=== PATIENT | female | born 1960 | race Caucasian/White ===

== ENCOUNTER 2017-05-07 09:00 | Outpatient (RCR) | payer OTHER, SELFPAY ==
--- NOTE | 2017-04-01 12:55 | HP.PTEVAL ---
Patient's Visit Information VU HIGGINS is a 56 year old F referred to Physical Therapy by Holly Braun DO with a diagnosis of LUMBAR RADICULOPATHY AND PLANTAR FASCITIS. Date of Evaluation: 04/01/17 Physical Therapist: Asuncion Duron - Visit Plan Frequency: 2-3x /Week Duration: 4-6 Weeks Plan: AQUATIC THERAPY. POSTURE CORRECTION/STRENGTHENING, INSTRUCTION IN APPROPRIATE BODY MECHANICS AND ACTIVITY MODIFICATIONS. DLS STARTING WITH A NEUTRAL SPINE PROGRESSING ROM TOLERATED. MICHAEL LE ROM, STRETCHING AND STRENGTHENING. HEP INSTRUCTION. - Subjective Subjective: Work/Leisure: WORKING 15 HOURS A WEEK BETWEEN [employer] (STARTING IN [employer]). A LOT OF STANDING. NO HEAVY LIFTING. 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 Disability: NO. Present symptoms: RIGHT LOW BACK, RIGHT THIGH, RIGHT LEG AND RIGHT FOOT. NO LE NUMBNESS OR TINGLING. MICHAEL FOOT PAIN. Present since: THESE PAINS STARTED ABOUT 3 MONTHS AGO. Pain Scale: BACK AND RIGHT LE AT WORST 5/10, LEAST 0/10. FEET WORST 6/10, LEAST 2/10. Currently: BACK AND RIGHT LE 1/10, FEET 2/10. Commenced as a result of: FALL ON BACK 2014. Symptoms at onset: RIGHT HIP. Worse: STANDING, SITTING, STAIRS, LYING DOWN, LIFTING, ANY SORT OF EXERCISE. Better: ICING, ADVIL. Disturbed sleep: YES. Previous history/Previous treatment: CHIROPRACTIC SINCE 1981 FOR HER BACK AND NECK. PT AT DR. GONZALEZ OFFICE. NO BACK OR FOOT SURGERIES. NO INJECTIONS. Coughing/sneezing/straining: NEGATIVE. Gait: INTERMITTENT LIMITATION DUE TO SEVERE FOOT PAIN CAUSING HER TO HAVE TO SIT DOWN. Difficulty initiating urinatin: NO. Accidents: NO. Unexplained weight loss: ABOUT 15 LBS IN 8 MONTHS. Imaging: MRI OF LUMBAR - NORMAL AGING. DR. PRUITT ORDERED X-RAYS OF FEET LAST YEAR - BONE SPUR LEFT AND ARTHRITIS ON TOP OF RIGHT FOOT. PMH: HYPOTHYROIDISM, PSORIASIS, HTN, HEART BURN, ANXIETY. Recent major surgery: LEFT KNEE MENISECTOMY, BENIGN LUMP REMOVAL. SKIN CANCER REMOVED 3 MONTHS AGO. RIGHT THUMB SURGERY. OTHER: GOING THROUGH A DIVORCE NOW. RECENTLY GOT NEW SHOES AT DR. BRAVO RECOMMENDATION AND THEY ARE HELPING. PATIENT REPORTS SHE WAS HAVING A LOT OF EXTREMITY NUMBNESS AND TINGLING SO SHE SAW A NEUROLOGIST LAST YEAR AND DX'D WITH SCOLIOSIS AND PROBABLY A LOT STRESS INDUCED SX'S. - Objective Sitting Posture: POOR. Standing Posture: POOR. INCREASED KYPHOSIS AND SCOLIOSIS. Lordosis: REDUCED. Lateral shift: NO. Relevant shift: N/A. Active Correction of posture: NE. Other Observations: INDEP GAIT INTO PT WITH NO AD'S AND NO GROSS DEVIATIONS NOTED. INDEP SIT TO STAND WITHOUT UE ASSIST. Motor deficit: MICHAEL LE STRENGTH 5/5 WITH MMT EXCEPT HIPS GRADED 4/5. NO C/O INCREASED PAIN WITH TESTING. Sensory deficit: MICHAEL LE LIGHT TOUCH SENSATION TESTING IS INTACT AND SYMMETRICAL. ROM deficit: MICHAEL LE ROM WFL BUT SHE DOES HAVE TIGHT MICHAEL GASTROC SOLEUS COMPLEX'S. Reflexes: MICHAEL LE'S 2/2. Dural Signs: NEGATIVE MICHAEL LE DURAL SIGNS. Lumbar mvmt loss: flex - MIN. ext - RAMOS. R SG - RAMOS. L SG - RAMOS. Core strength: POOR. Palpation: NO ACUTE PALPABLE TENDERNESS IN THORACIC OR LUMBAR SPINE. ALSO NOT ACUTELY TENDER OVER PARASPINALS. - Goals Goal 1:: DECREASE C/O BACK AND RIGHT LE SX'S Goal Time Frame: 4-6 Weeks Goal 2:: IMPROVE STANDING, SITTING, STAIRS, LYING DOWN, LIFTING, EXERCISE, WORK AND SLEEP FUNCTION. Goal Time Frame: 4-6 Weeks Goal 3:: INSTRUCT IN PROPHYLAXIS (PATIENT HAS A HEALTH AND WELLNESS MEMBERSHIP HERE AT [facility]). Goal Time Frame: 4-6 Weeks - Rehabilitation Potential Rehabilitation Potential: Fair - Anticipated Interventions Patient/Client Instruction: Educate patient on: Condition, Plan of Care, Risk Factors, Benefits of Fitness Program For the Purpose of:: To improve self management Therapeutic Exercise to Include: Strength training, Body mechanics, Postural training, Flexibilty training, In an aquatic setting, Dynamic Lumbar Stabilization For the Purpose of:: To improve ability of physical actions for home/community/work/leisure TENS: Yes IF ES: Yes Cryotherapy (ice pack, ice massage): Yes Thermo therapy (hot pack): Yes Ultrasound (thermal/non thermal): Yes For the Purpose of:: To decrease pain, To decrease swelling/inflammation, To increase ROM Thank you for the opportunity to evaluate your patient. For Medicare and Medicare HMO plans, please review the plan of care and approve it. It will need to be FAXED BACK to us at [phone] for Medicare purposes. Please let me know if there are questions or concerns regarding this plan of care. Physician Signature: Date:
--- NOTE | 2017-05-07 11:34 | HP.PTREVAL ---
Holly Wagner, DO, It has been my pleasure to treat VU HIGGINS over the last 9 visits for LUMBAR RADICULOPATHY AND PLANTAR FASCITIS. Please see the progress note below for an update on the physical therapy plan of care! Subjective: PATIENT REPORTS SHE IS A LOT BETTER. STATES HER LEGS AND FEET ARE MUCH BETTER BUT THE BONE SPUR IS STILL BOTHERING HER SOME. CURRENTLY HAVING LB ACHE 1/10. RIGHT LE INCLUDING FOOT 0/10. SHE REPORTS LYING ON HER RIGHT SIDE AND SITTING DO STILL PROVOKE RIGHT LE SX'S UP TO 6/10 AT WORST. RIGHT LE SX'S CAN STILL BRING TEARS TO HER EYES. NO FOLLOW UP WITH DR. AWGNER YET BUT APPOINTMENT IN JUNE. PATIENT REPORTS SHE IS AMAZED AT HOW MUCH AQUA THERAPY HAS HELPED. SHE ALSO REPORTS THE POSTURE CORRECTION AND HOME EX'S ARE HELPING. I CAN SEE A HUGE DIFFERENCE. PATIENT REPORTS HER LEFT HEEL PAIN IS DEFINATELY BETTER TOO BUT SHE STILL HAS CONSTANT PAIN. THE BACK OF HER FOOT IS TENDER. SHE IS TO FOLLOW UP WITH DR. PRUITT NEEDED AT THIS POINT. PATIENT REPORTS SHE TOLERATED THE SQUATS AND STEP UPS IN THE POOL FINE LAST VISIT. 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 GOOD PROGRESS TOWARD ALL PT GOALS. Lumbar mvmt loss: flex - MIN. ext - MOD. R SG - MOD. L SG - MOD. Core strength: POOR TO FAIR. Palpation: NO ACUTE PALPABLE TENDERNESS IN THORACIC OR LUMBAR SPINE. ALSO NOT ACUTELY TENDER OVER PARASPINALS. SHE IS TENDER OVER THE LEFT ACHILLES TENDON. PATIENTS HIPS ARE GETTING MUCH STRONGER AND LUMBAR ROM IS IMPROVING. NO C/O INCREASED PAIN WITH LUMBAR ROM TESTING TODAY. Plan Plan: RECOMMEND CONTINUED AQUATIC THERAPY 2-3 TIMES A WEEK X 9 MORE VISITS PER CURRENT POC WORKING TOWARD INDEP EX. PATIENT IS AGREEABLE. Goals Goal 1:: DECREASE C/O BACK AND RIGHT LE SX'S Goal Time Frame: 4-6 Weeks Goal Progress: Progressing Goal 2:: IMPROVE STANDING, SITTING, STAIRS, LYING DOWN, LIFTING, EXERCISE, WORK AND SLEEP FUNCTION. Goal Time Frame: 4-6 Weeks Goal Progress: Progressing Goal 3:: INSTRUCT IN PROPHYLAXIS (PATIENT HAS A HEALTH AND WELLNESS MEMBERSHIP HERE AT [facility]). Goal Time Frame: 4-6 Weeks Goal Progress: Progressing Anticipated Interventions Patient/Client Instruction: Educate patient on: Condition, Plan of Care, Risk Factors, Benefits of Fitness Program For the Purpose of:: To improve self management Therapeutic Exercise to Include: Strength training, Body mechanics, Postural training, Flexibilty training, In an aquatic setting, Dynamic Lumbar Stabilization For the Purpose of:: To improve ability of physical actions for home/community/work/leisure TENS: Yes IF ES: Yes Cryotherapy (ice pack, ice massage): Yes Thermo therapy (hot pack): Yes Ultrasound (thermal/non thermal): Yes For the Purpose of:: To decrease pain, To decrease swelling/inflammation, To increase ROM Please do not hesitate to contact me at [phone] by phone or if you have questions or concerns regarding this new plan of care! Sincerely, Asuncion Duron
== END 2017-05-07 09:30 | disposition home or self-care (01) ==
LOC: PT 09:00
PROVIDERS: Family Provider Internal Medicine; PCP Internal Medicine; Visit Provider Internal Medicine
DX: M54.16 Radiculopathy, lumbar region (principal); M72.2 Plantar fascial fibromatosis
CPT/HCPCS: 97113; 97162; 97530

== ENCOUNTER → 2018-01-06 07:34 | Outpatient (CLI) | payer OTHER, SELFPAY ==
--- NOTE | 2018-01-06 07:37 | BI_ITS ---
MAMMOGRAPHY - BILATERAL SCREENING REASON FOR EXAM: Female, 57 years old. Routine annual screening examination. PERTINENT HISTORY: Aunt with breast cancer. Remote right excisional breast biopsy. TECHNIQUE: Digital bilateral breast john (3D mammographic acquisition) in the CC and MLO projections. 2-D mediolateral oblique (MLO) and craniocaudad (CC) views of both breasts were obtained. CAD: Full Field Digital Mammography with Computer Added Detection was performed. COMPARISON: Comparison is made with prior abdomen examination is December 30, 2016. FINDINGS: Breast Composition: The breasts are heterogeneously dense, which may obscure small masses. There are no dominant masses or suspicious calcifications. No other significant abnormalities are identified. There has been no significant change since the prior study. BI/SCREENING MAMM (CAD), BILAT IMPRESSION: Stable bilateral screening mammogram. Yearly follow-up mammogram recommended. (A) ASSESSMENT CATEGORY: BIRADS Category 1: Negative. A letter regarding these results will be sent to the patient by the facility within 30 days. Approximately 10% of breast cancers are not detected by mammography. A normal mammogram should not delay biopsy of a clinically suspicious abnormality. [id number] Electronically Signed: Mati Alicea MD at 9:14 EDT Tel [phone], Service support ,
--- NOTE | 2018-01-06 15:02 | RAD_ITS ---
STUDY: X-RAY - RIGHT SHOULDER REASON FOR EXAM: Female, 57 years old. Right shoulder pain after lifting TECHNIQUE: 4 view(s) of the shoulder. COMPARISON: None. FINDINGS: There is moderate degenerative arthrosis of the glenohumeral articulation. There is degenerative arthrosis of the acromioclavicular joint without inferior osseous spur formation. Normal acromion. Normal humeral head and visualized proximal humerus. The soft tissue structures are unremarkable. Normal visualized pulmonary apex. RAD/Shoulder min 2 Views IMPRESSION: Degenerative arthrosis Electronically Signed: Grayson Cruz MD at 14:52 EDT , Service support ,
--- NOTE | 2018-01-06 15:12 | RAD_ITS ---
STUDY: ACROMIOCLAVICULAR JOINTS REASON FOR EXAM: Female, 57 years old. Pain RADIATION DOSAGE (If Supplied By Facility): CTDIvol = ( ) mGy, DLP = ( ) mGycm. Individualized dose optimization techniques were used for this CT.? FLUOROSCOPY TIME (if supplied): ( ) minutes/seconds TECHNIQUE: 2 views, with and without weights COMPARISON: None. FINDINGS: No plain film evidence of acromioclavicular joint separation. There is arthritic narrowing of both acromioclavicular joints, more prominent on the left than the right. No demonstrated fracture, or glenohumeral joint abnormality. RAD/A/C Jts Raj w or w/o Wts IMPRESSION: Degenerative arthrosis, no demonstrated acromioclavicular joint separation Electronically Signed: Grayson Cruz MD at 14:31 EDT , Service support ,
== END ==
PROVIDERS: Family Provider Internal Medicine; PCP Internal Medicine; Visit Provider Internal Medicine
DX: Z12.31 Encounter for screening mammogram for malignant neoplasm of breast (principal); M25.511 Pain in right shoulder
CPT/HCPCS: 73030; 73050; 77063; 77067

== ENCOUNTER 2018-02-03 16:00 | Outpatient (RCR) | payer OTHER, SELFPAY ==
--- NOTE | 2018-01-13 10:34 | HP.PTEVAL ---
Patient's Visit Information VU HIGGINS is a 57 year old F referred to Physical Therapy by Holly Braun DO with a diagnosis of R shouder pain.. Date of Evaluation: 01/13/18 Physical Therapist: Carla Connolly - Visit Plan Frequency: 3x /Week Duration: 3 Weeks Plan: PT services 3x week for 3 weeks focusing on posture, scapular stabilization and strength, range of motion and strength of surrounding musculature of R shoulder. If no improvement at end of 3 weeks, f/u with physician. - Subjective Subjective: About 3 months ago pt. went to reach over in car to set something down and excrutiating pain begain in the right anterior shoulder. [place] pop initially but clicking noted in both shoulders is normal. Difficulty driving stick shift, grabbed Ibprofen and drove home. Did not use R arm much for a couple months and seemed to get better then pain began again putting something down extending elbow. Both shoulders bother, but R is worse. Arthritis in both feet, L knee, and back. Current shoulder pain feels a little more intense than other arthritis. Similar to foot. Aquatic threapy seemed to help for feet last year. Pain is deep anterior shoulder. Generally stays in shoulder, tingling in fingers before injury; aggrevated for first three weeks after initial injury. Current pain 1-2/10, worst 6/10, best 1/10. Keeping arm adducted at side feels good; ER, ext., or abd. shoulder feel worst. Tried ice 20 minutes on and hour off, not sure if helps. No previous injury. Contributing factor to not sleeping well but able to move around and fall back asleep. Mostly sleeps on back and sides, never on stomach. Noticed if carrying work bag on shoulder and lifting causes pain so carries two smaller bags. No MARROQUIN, migraines, no dizziness, eyes get blurry at night but normal. 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 Notices using L arm more to avoid using R during tasks. R hand dominant. Able to complete ADL, notices will compensate if pain. PMH include cartilage removed in L knee, appendcectomy, lumpectomy. Medication hypothryoid Cinthroid daily, slowly stopped taking off Cimbalata, Lorazapam as needed for anxiety. Goals: regain full use of shoulder and eliminate pain. Getting ready to go to counselor at law to create a diet addressing thryoid and arthritis. Dr. Braun, radiographs show arthritis. February 20 f/u. - Pain anterior shoulder Pain Intensity (Out of 10): 2 Pain Intensity Range: 1, 6 - Objective Gait: WFL, good arm swing bilat. Posture: rounded shoulders, kyphosis, FHP. Palaption: TTP R coracoid process and anterior GH joint. AROM: R shoulder: flex WFL pain at end range, abd. lack approx 40 deg with pain, ext. WFL, ER at 0 WFL, ER at 90 WFL with pain, IR able to reach mid back with pain. Cervical: flex approx 15 deg, ext. approx 15 deg, lat. flex approx 20 deg, rotation approx 25 deg. Limitations due to tightness, do not affect shoulder pain. Elbow and wrist: WNL. Strength: shoulder 4/5 throughout with pain, elbow and wrist 5/5 throughout. Special Tests: Neer's (+) Hawkin's Daniele (+) Empy Can (+ pain in both positions-ER more painful) - Goals Goal 1:: Patient will be I with HEP and progressions. Goal Time Frame: 4-6 Weeks Goal 2:: Patient will demonstrate proper posture throughout session to reflect correct scapular stabilization. Goal Time Frame: 4-6 Weeks Goal 3:: Patient will demonstrate full range of motion of right shoulder where deficits. Goal Time Frame: 4-6 Weeks Goal 4:: Patient will demonstrate increased strength to 5/5 throughout the shoulders. Goal Time Frame: 4-6 Weeks Goal 5:: Patient will present with pain 1/10 or less for 1 week. Goal Time Frame: 4-6 Weeks - Rehabilitation Potential Physical Therapy Diagnosis: Patient presents with hypomobility. Decreased range of motion and strength of the R shoulder in addition to arthritis limiting the patient from functional participation in daily and work activites. Rehabilitation Potential: Good - Anticipated Interventions Patient/Client Instruction: Educate patient on: Condition, Plan of Care, Benefits of Fitness Program For the Purpose of:: To increase ROM, To improve muscle performance and motor function, To improve ability to perform ADL's, To increase tolerance to activity/condition/position, To improve ability of physical actions for home/community/work/leisure Therapeutic Exercise to Include: Strength training, Power training, Coordination, Body mechanics, Postural training, Flexibilty training, Active ROM, Scapular Strength/Stabilization For the Purpose of:: To increase ROM, To improve muscle performance and motor function, To improve ability to perform ADL's, To increase tolerance to activity/condition/position, To improve ability of physical actions for home/community/work/leisure TENS: Yes Cryotherapy (ice pack, ice massage): Yes Thermo therapy (hot pack): Yes Ultrasound (thermal/non thermal): Yes For the Purpose of:: To decrease pain Thank you for the opportunity to evaluate your patient. For Medicare and Medicare HMO plans, please review the plan of care and approve it. It will need to be FAXED BACK to us at [phone] for Medicare purposes. Please let me know if there are questions or concerns regarding this plan of care. Physician Signature: Date:
--- NOTE | 2018-04-16 09:44 | HP.PT.NRP ---
HP - Discharge Summary (1) - Patient Information VU HIGGINS was seen in my office for initial evaluation on 01/13/18. The following Plan of Care was established for this patient: Initial Frequency: 3x /Week Initial Duration: 3 Weeks - Anticipated Interventions Patient/Client Instruction: Educate patient on: Condition, Plan of Care, Benefits of Fitness Program For the Purpose of:: To increase ROM, To improve muscle performance and motor function, To improve ability to perform ADL's, To increase tolerance to activity/condition/position, To improve ability of physical actions for home/community/work/leisure Therapeutic Exercise to Include: Strength training, Power training, Coordination, Body mechanics, Postural training, Flexibilty training, Active ROM, Scapular Strength/Stabilization For the Purpose of:: To increase ROM, To improve muscle performance and motor function, To improve ability to perform ADL's, To increase tolerance to activity/condition/position, To improve ability of physical actions for home/community/work/leisure TENS: Yes Cryotherapy (ice pack, ice massage): Yes Thermo therapy (hot pack): Yes Ultrasound (thermal/non thermal): Yes For the Purpose of:: To decrease pain This patient was last seen in our office . Pertinent comments regarding their Physical therapy will appear below: Patient has not attended therapy in over 8 weeks- appropriate for d/c and return to MD for further evaluation as needed. At this point I will be discontinuing this patient from physical therapy. I would be happy to see this patient again in the future if found appropriate by the physician. Thank you! Carla Connolly DPT
== END 2018-02-03 19:00 | disposition home or self-care (01) ==
LOC: PT 16:00
PROVIDERS: Family Provider Internal Medicine; PCP Internal Medicine; Referring Provider Internal Medicine; Visit Provider Internal Medicine
DX: M25.511 Pain in right shoulder (principal)
CPT/HCPCS: 97110; 97161

== ENCOUNTER 2018-06-11 09:30 | Outpatient (RCR) | payer SELFPAY | END 2018-06-17 23:59 | LOC: NS 09:30 | PROVIDERS: Family Provider Internal Medicine; PCP Internal Medicine; Visit Provider Internal Medicine | DX: E66.9 Obesity, unspecified (principal); Z68.28 Body mass index [BMI] 28.0-28.9, adult; E78.00 Pure hypercholesterolemia, unspecified; Z71.3 Dietary counseling and surveillance | CPT/HCPCS: 97802; 97803 ==

== ENCOUNTER 2018-07-15 08:30 | Outpatient (RCR) | payer SELFPAY | END 2018-07-18 23:59 | LOC: NS 08:30 | PROVIDERS: Family Provider Internal Medicine; PCP Internal Medicine; Visit Provider Internal Medicine | DX: E66.9 Obesity, unspecified (principal); Z68.28 Body mass index [BMI] 28.0-28.9, adult; E78.00 Pure hypercholesterolemia, unspecified; Z71.3 Dietary counseling and surveillance | CPT/HCPCS: 97803 ==

== ENCOUNTER → 2018-09-09 08:20 | Outpatient (CLI) | payer OTHER, SELFPAY ==
--- NOTE | 2018-09-09 08:27 | BD_ITS ---
STUDY: DUAL ENERGY X-RAY ABSORPTIOMETRY / DXA REASON FOR EXAM: Female, 57 years old. The patient is postmenopausal. No loss of height. TECHNIQUE: Bone Mineral Density (BMD) measurements of lumbar spine and bilateral hips were obtained. COMPARISON: Comparison is made with prior study dated May 21, 2016. FINDINGS: Lumbar Spine (L1-L4): g/cm2 (1.283) / T-score (0.7) / Z-score (1.6) Findings are suggestive of normal bone density with a low fracture risk. Left Femur Total: g/cm2 (0.959) / T-score (-0.4) / Z-score (0.4) Left Femoral Neck: g/cm2 (0.947) / T-score (-0.7) / Z-score (0.4) Right Femur Total: g/cm2 (0.989) / T-score (-0.1) / Z-score (0.6) Right Femoral Neck: g/cm2 (0.993) / T-score (-0.3) / Z-score (0.8) The T-Scores on the most recent prior examination were: Lumbar Spine (L1-L4): There has been worsening of bone density since the previous examination. Left Femur Total: which represents a worsening of 4%. Right Femur Total: which represents an improvement of 2.8%. BD/Dexa Bone Density Study IMPRESSION: The patient is considered normal as outlined below according to World Amanuel Organization (WHO) criteria with a low fracture risk. There has been worsening of bone density since the previous examination. Reference Information: The T-score is the number of standard deviations above or below the standard which is normal for young adults at their peak bone mineral density. The World Health Organization (WHO) interprets the T-scores as follows: Above -1 Normal bone density Between -1 and -2.5 Osteopenia Equal to / or below -2.5 Osteoporosis As a practical clinical guideline, osteopenia may be graded as follows: Mild -1 through -1.5 Moderate -1.6 through -2.0 Severe -2.1 through -2.4 The Z-score is the number of standard deviations above or below age-matched controls. A Z-score of less than -1.5 would be considered abnormal. References: 1. NIH Osteoporosis and Related Bone Diseases http://www.osteo.org 2. International Society for Clinical Densitometry http://www.iscd.org 3. National Osteoporosis Foundation http://www.nof.org Electronically Signed: Mati Alicea, at 12:33 EDT , Service support ,
== END ==
PROVIDERS: Family Provider Internal Medicine; PCP Internal Medicine; Referring Provider Internal Medicine; Visit Provider Internal Medicine
DX: Z78.0 Asymptomatic menopausal state (principal)
CPT/HCPCS: 77080

== ENCOUNTER 2018-09-10 08:00 | Outpatient (RCR) | payer SELFPAY | END 2018-09-17 23:59 | LOC: NS 08:00 | PROVIDERS: Family Provider Internal Medicine; PCP Internal Medicine; Visit Provider Internal Medicine | DX: E66.9 Obesity, unspecified (principal); Z68.28 Body mass index [BMI] 28.0-28.9, adult; E78.00 Pure hypercholesterolemia, unspecified; Z71.3 Dietary counseling and surveillance | CPT/HCPCS: 97803 ==

== ENCOUNTER 2018-10-06 08:41 | Outpatient (RCR) | payer OTHER, SELFPAY | END 2018-10-17 23:59 | LOC: NS 08:41 | PROVIDERS: Family Provider Internal Medicine; PCP Internal Medicine; Visit Provider Internal Medicine | DX: E66.9 Obesity, unspecified (principal); Z68.28 Body mass index [BMI] 28.0-28.9, adult; E78.00 Pure hypercholesterolemia, unspecified; Z71.3 Dietary counseling and surveillance | CPT/HCPCS: 97803 ==

== ENCOUNTER → 2019-09-16 12:46 | Outpatient (CLI) | payer OTHER, SELFPAY ==
--- NOTE | 2019-09-16 12:51 | BI_ITS ---
MAMMOGRAPHY - BILATERAL SCREENING REASON FOR EXAM: Female, 58 years old. Routine annual screening examination. PERTINENT HISTORY: Aunts with breast cancer. TECHNIQUE: Digital bilateral breast jl (3D mammographic acquisition) in the CC and MLO projections. 2-D mediolateral oblique (MLO) and craniocaudad (CC) views of both breasts were obtained. CAD: Full Field Digital Mammography with Computer Added Detection was performed. COMPARISON: Comparison is made with prior examination dated January 06, 2018. FINDINGS: Breast Composition: The breasts are heterogeneously dense, which may obscure small masses. There are no dominant masses or suspicious calcifications. No other significant abnormalities are identified. There has been no significant change since the prior study. BI/SCREEN MAMM (CAD) W/JL BILAT IMPRESSION: Stable bilateral screening mammogram. Yearly follow-up mammogram recommended. (A) ASSESSMENT CATEGORY: BIRADS Category 1: Negative. A letter regarding these results will be sent to the patient by the facility within 30 days. Approximately 10% of breast cancers are not detected by mammography. A normal mammogram should not delay biopsy of a clinically suspicious abnormality. [id number] Electronically Signed: Mati Alicea, at 13:58 EDT , Service support ,
== END ==
PROVIDERS: PCP Internal Medicine; Referring Provider Internal Medicine; Visit Provider Internal Medicine
DX: Z12.31 Encounter for screening mammogram for malignant neoplasm of breast (principal)
CPT/HCPCS: 77063; 77067

== ENCOUNTER → 2019-12-19 07:59 | Outpatient (CLI) | payer OTHER, SELFPAY ==
--- NOTE | 2019-12-19 08:11 | RAD_ITS ---
STUDY: X-RAY CHEST REASON FOR EXAM: Female, 59 years old. Cough x 1 year -- itching left side x 6 months -- breast lump removed 25 years ago TECHNIQUE: PA and lateral views of the chest. COMPARISON: Comparison is made with prior study dated 06/23/2010. FINDINGS: The lungs are clear and expanded. There is no demonstrated pleural abnormality. Normal size heart. Normal mediastinum and geeta. Normal visualized pulmonary arteries. There is atherosclerotic tortuosity of the aortic arch and descending thoracic aorta. There are diffuse degenerative changes of the visualized thoracic spine. Normal visualized ribs, clavicles, and shoulders. There is no demonstrated abnormality of the visualized soft tissue structures of the upper abdomen. RAD/Chest PA and Lateral IMPRESSION: Stable examination. Electronically Signed: Mati Alicea, at 10:43 EDT , Service support ,
--- NOTE | 2019-12-19 08:16 | US_ITS ---
STUDY: ABDOMINAL ULTRASOUND - RIGHT UPPER QUADRANT REASON FOR VISIT: Female, 59 years old elevated liver enzymes TECHNIQUE: Ultrasound evaluation of the right upper quadrant was performed with real-time and static martin-scale imaging. TECHNICAL QUALITY: Adequate. COMPARISON: None. FINDINGS: Liver: The liver measures 16.8 cm. There is increased echogenicity consistent with fatty infiltration. The bile ducts are within normal limits. There is hepatic color flow. The direction of portal flow is hepatopetal. There is no demonstrated mass lesion. Gallbladder: Normal distended gallbladder. The gallbladder wall measures 1.6 mm. There is a negative sonographic Evangelista''s sign. There is no pericholecystic fluid. There are no gallstones. Common Bile Duct (C.B.D.): The common bile duct measures 4.3 mm. Pancreas: Normal size of the head, body and tail of the pancreas. There is normal echogenicity of the pancreas. There is no demonstrated pancreatic mass or cyst. Right Kidney: Normal size of the right kidney. The right kidney measures 9.7 cm x 4.5 sinus by 4.1 cm. Normal renal cortex. The right cortex measures 1.1 cm. There is no demonstrated renal mass or cyst. There is no right hydronephrosis. US/Liver IMPRESSION: Fatty infiltration of the liver. Electronically Signed: Mati Alicea, at 10:15 EDT , Service support ,
== END ==
PROVIDERS: PCP Internal Medicine; Referring Provider Internal Medicine; Visit Provider Internal Medicine
DX: R94.5 Abnormal results of liver function studies (principal); R05 Cough
CPT/HCPCS: 71046; 76705

== ENCOUNTER → 2020-02-06 07:56 | Outpatient (CLI) | payer OTHER, SELFPAY ==
--- NOTE | 2020-02-06 08:00 | CT_ITS ---
STUDY: CT CHEST WITH CONTRAST REASON FOR EXAM: Female, 59 years old. CHRONIC COUGH X 1 YR, TINGLING TO LT UPPER CHEST, RT BREAST LUMPECTOMY-BENIGN RADIATION DOSAGE (If Supplied By Facility): CTDIvol = ( 12.33 ) mGy, DLP = ( 500.74 ) mGycm TECHNIQUE: Transaxial imaging was performed following intravenous administration of IV 100mL Isovue-300. Multiplanar coronal and sagittal images were reformatted. Individualized dose optimization techniques were used for this CT. COMPARISON: None. FINDINGS: No airspace consolidation or localized groundglass opacities. No bronchiectasis or interstitial fibrosis. There is no demonstrated pleural abnormality. Normal heart and pericardium. Normal mediastinum. Normal hilar regions. Normal enhanced pulmonary arteries. Normal aorta arch and descending thoracic aorta. There are multi-level degenerative changes of the thoracic spine. Well-defined cyst of the inferior left hepatic lobe measuring 1.4 cm. Benign, incidental finding; no specific imaging workup recommended according to current ACR guidelines. CT/Chest WITH Contrast IMPRESSION: No airspace consolidation or significant interstitial lung disease. Electronically Signed: Sonido Modi MD ([place]) at 8:51 EDT , Service support ,
== END ==
PROVIDERS: PCP Internal Medicine; Referring Provider Internal Medicine; Visit Provider Internal Medicine
DX: R05 Cough (principal)
CPT/HCPCS: 71260; Q9967

== ENCOUNTER → 2020-12-31 09:30 | Outpatient (CLI) | payer OTHER, SELFPAY ==
--- NOTE | 2020-12-31 09:43 | US_ITS ---
STUDY: ABDOMINAL ULTRASOUND - RIGHT UPPER QUADRANT REASON FOR VISIT: Female, 60 years old FATTY LIVER -- LIVER AND PANCREAS ALSO HAS JOHNNY COLORED STOOLS TECHNIQUE: Ultrasound evaluation of the right upper quadrant was performed with real-time and static martin-scale imaging. TECHNICAL QUALITY: Adequate. COMPARISON: Comparison is made with prior study dated 12/19/2019. FINDINGS: Liver: The liver measures 15.8 cm. There is increased echogenicity consistent with fatty infiltration. The bile ducts are within normal limits. There is hepatic color flow. The direction of portal flow is hepatopetal. There is no demonstrated mass lesion. Gallbladder: Normal distended gallbladder. The gallbladder wall measures 4 mm. There is a negative sonographic Evangelista''s sign. There is no pericholecystic fluid. There are no gallstones. Common Bile Duct (C.B.D.): The common bile duct measures 4 mm. Pancreas: Normal size of the head, body and tail of the pancreas. There is normal echogenicity of the pancreas. There is no demonstrated pancreatic mass or cyst. Right Kidney: Normal size of the right kidney. The right kidney measures 10.5 cm x 5 cm x 4.8 cm. Normal renal cortex. The right cortex measures 1.9 cm. There is no demonstrated renal mass or cyst. There is no right hydronephrosis. US/Abdomen Limited IMPRESSION: Fatty infiltration of the liver. Electronically Signed: Mati Alicea MD at 9:51 EDT , Service support ,
== END ==
PROVIDERS: PCP Internal Medicine; Referring Provider Internal Medicine; Visit Provider Internal Medicine
DX: K76.0 Fatty (change of) liver, not elsewhere classified (principal)
CPT/HCPCS: 76705

== ENCOUNTER → 2021-04-03 09:36 | Outpatient (CLI) | payer OTHER, SELFPAY ==
--- NOTE | 2021-04-03 09:40 | BI_ITS ---
MAMMOGRAPHY - BILATERAL DIAGNOSTIC REASON FOR EXAM: Female, 60 years old. Right retroareolar and upper quadrant pain. PERTINENT HISTORY: Aunts with breast cancer. TECHNIQUE: Digital bilateral breast john (3D mammographic acquisition) in the CC and MLO projections. 2-D mediolateral oblique (MLO) and craniocaudad (CC) views of both breasts were obtained. CAD: Full Field Digital Mammography with Computer Added Detection was performed. COMPARISON: Comparison is made with prior study 09/16/2019 and 01/06/2018. FINDINGS: Breast Composition: The breasts are heterogeneously dense, which may obscure small masses. There are no dominant masses or suspicious calcifications. No other significant abnormalities are identified. There has been no significant change since the prior study. BI/DIAG MAMM W/CAD, BILAT IMPRESSION: Stable bilateral diagnostic mammogram. With the patient''s history of a right upper quadrant pain, correlation with ultrasound is recommended. ASSESSMENT CATEGORY: BIRADS Category 0: Incomplete. Need additional imaging evaluation. A letter regarding these results will be sent to the patient by the facility within 30 days. Approximately 10% of breast cancers are not detected by mammography. A normal mammogram should not delay biopsy of a clinically suspicious abnormality. Electronically Signed: Mati Alicea MD at 11:09 EST , Service support ,
--- NOTE | 2021-04-03 10:31 | US_ITS ---
STUDY: ULTRASOUND BREAST - RIGHT REASON FOR EXAM: Female, 60 years old. Pain in the right breast. TECHNIQUE: Axial and longitudinal images of the RIGHT breast were performed with a high resolution ultrasound transducer. # OF IMAGES: 36 COMPARISON: Comparison is made with prior mammogram done earlier in the day. FINDINGS: RIGHT Breast: The upper lateral aspect of the right breast was examined by ultrasound. There is heterogeneous fibroglandular tissue. No sonographic abnormality is seen. US/Breast Limited Unilateral IMPRESSION: No sonographic abnormalities seen. ASSESSMENT CATEGORY: BIRADS Category 1: Negative. A letter regarding these results will be sent to the patient by the facility within 30 days. Electronically Signed: Mati Alicea MD at 12:15 EST , Service support ,
== END ==
PROVIDERS: PCP Internal Medicine; Visit Provider Internal Medicine
DX: N64.4 Mastodynia (principal)
CPT/HCPCS: 76642; 77062; 77066; G0279

== ENCOUNTER → 2022-04-08 | Outpatient (CLI) | payer OTHER, SELFPAY ==
--- NOTE | 2022-04-08 14:48 | BI_ITS ---
MAMMOGRAPHY - BILATERAL SCREENING REASON FOR EXAM: Female, 61 years old. Routine annual screening examination. PERTINENT HISTORY: Aunt with breast cancer. TECHNIQUE: Digital bilateral breast jl (3D mammographic acquisition) in the CC and MLO projections. 2-D mediolateral oblique (MLO) and craniocaudad (CC) views of both breasts were obtained. CAD: Full Field Digital Mammography with Computer Added Detection was performed. COMPARISON: Comparison is made with prior study of 04/03/2021 and 09/16/2019. FINDINGS: Breast Composition: The breasts are heterogeneously dense, which may obscure small masses. There are no dominant masses or suspicious calcifications. No other significant abnormalities are identified. There has been no significant change since the prior study. BI/SCRN MAMM (CAD)W/JL BILAT IMPRESSION: Stable bilateral screening mammogram. Yearly follow-up mammogram recommended. (A) ASSESSMENT CATEGORY: BIRADS Category 1: Negative. A letter regarding these results will be sent to the patient by the facility within 30 days. Approximately 10% of breast cancers are not detected by mammography. A normal mammogram should not delay biopsy of a clinically suspicious abnormality. [id number] Electronically Signed: Mati Alicea MD at 8:17 EST ,
--- NOTE | 2022-04-08 14:56 | BD_ITS ---
STUDY: DUAL ENERGY X-RAY ABSORPTIOMETRY / DXA REASON FOR EXAM: Female, 61 years old. [id number] TECHNIQUE: Bone Mineral Density (BMD) measurements of lumbar spine and bilateral hips were obtained. COMPARISON: Comparison is made with prior study 09/09/2018. FINDINGS: Lumbar Spine (L1-L4): g/cm2 (1.096) / T-score (0.4) / Z-score (1.9) Findings are suggestive of normal bone density with a low fracture risk. Left Femur Total: g/cm2 (0.987) / T-score (0.4) / Z-score (1.3) Left Femoral Neck: g/cm2 (0.825) / T-score (-0.2) / Z-score (1.1) Right Femur Total: g/cm2 (0.938) / T-score (0.0) / Z-score (0.9) Right Femoral Neck: g/cm2 (0.774) / T-score (-0.7) / Z-score (0.6) The T-Scores on the most recent prior examination were: Lumbar Spine (L1-L4): There has been worsening of bone density since the previous examination. Left Femur Total: which represents an improvement of 10.4%. Right Femur Total: which represents an improvement of 1.6%. BD/Dexa Bone Density Study IMPRESSION: The patient is considered normal as outlined below according to World Amanuel Organization (WHO) criteria with a low fracture risk. There has been improvement of bone density since the previous examination. Reference Information: The T-score is the number of standard deviations above or below the standard which is normal for young adults at their peak bone mineral density. The World Health Organization (WHO) interprets the T-scores as follows: Above -1 Normal bone density Between -1 and -2.5 Osteopenia Equal to / or below -2.5 Osteoporosis As a practical clinical guideline, osteopenia may be graded as follows: Mild -1 through -1.5 Moderate -1.6 through -2.0 Severe -2.1 through -2.4 The Z-score is the number of standard deviations above or below age-matched controls. A Z-score of less than -1.5 would be considered abnormal. References: 1. NIH Osteoporosis and Related Bone Diseases www osteo.org 2. International Society for Clinical Densitometry www iscd.org 3. National Osteoporosis Foundation www nof.org Electronically Signed: Mati Alicea MD at 12:30 EST ,
== END | disposition home or self-care (01) ==
LOC: OPBD 14:45
PROVIDERS: PCP Internal Medicine; Visit Provider Internal Medicine
DX: Z12.31 Encounter for screening mammogram for malignant neoplasm of breast (principal); Z80.3 Family history of malignant neoplasm of breast; Z78.0 Asymptomatic menopausal state; M85.80 Other specified disorders of bone density and structure, unspecified site
CPT/HCPCS: 77063; 77067; 77080

== ENCOUNTER → 2022-06-18 | Outpatient (CLI) | payer OTHER, SELFPAY ==
--- NOTE | 2022-06-18 07:24 | US_ITS ---
STUDY: ABDOMINAL ULTRASOUND - RIGHT UPPER QUADRANT REASON FOR VISIT: Female, 61 years old FATTY LIVER TECHNIQUE: Ultrasound evaluation of the right upper quadrant was performed with real-time and static martin-scale imaging. TECHNICAL QUALITY: Adequate. COMPARISON: Comparison is made with prior study dated 12/31/2020. FINDINGS: Liver: The liver measures 16.5 cm. There is increased echogenicity consistent with fatty infiltration. The bile ducts are within normal limits. There is hepatic color flow. The direction of portal flow is hepatopetal. There is a 1.6 cm x 1.77 x 1.8 cm cyst in the left lobe. Gallbladder: Normal distended gallbladder. The gallbladder wall measures 2.1 mm. There is a negative sonographic Evangelista''s sign. There is no pericholecystic fluid. There are no gallstones. Common Bile Duct (C.B.D.): The common bile duct measures 5.6 mm. Pancreas: Normal size of the head, body and tail of the pancreas. There is normal echogenicity of the pancreas. There is no demonstrated pancreatic mass or cyst. Right Kidney: Normal size of the right kidney. The right kidney measures 10.4 cm x 5.2 cm x 3.9 cm. Normal renal cortex. The right cortex measures 1.4 cm. There is no demonstrated renal mass or cyst. There is no right hydronephrosis. US/Liver IMPRESSION: Fatty infiltration of the liver. 1.6 cm x 1.7 cm x 1.8 cm cyst in the left lobe of the liver. Electronically Signed: Mati Alicea MD at 14:03 EST ,
[2022-06-18 08:25] LABS: CREATININE FINGERSTICK < 0.9 mg/dL (0.55-1.02); EGFR FINGERSTICK > 60.0000 mL/min (>60)
== END | disposition home or self-care (01) ==
LOC: US 07:20
PROVIDERS: PCP Internal Medicine; Referring Provider Internal Medicine; Visit Provider Internal Medicine
DX: R10.12 Left upper quadrant pain (principal); K76.0 Fatty (change of) liver, not elsewhere classified
CPT/HCPCS: 76705

== ENCOUNTER → 2022-06-23 | Outpatient (CLI) | payer OTHER, SELFPAY ==
--- NOTE | 2022-06-23 07:56 | CT_ITS ---
STUDY: CT ABDOMEN WITH CONTRAST REASON FOR EXAM: Female, 61 years old. LEFT UPPER QUADRANT PAIN. Prior appendectomy. RADIATION DOSAGE (If Supplied By Facility): CTDIvol = ( 18.07 ) mGy, DLP = ( 815.27 ) mGycm TECHNIQUE: Transaxial images were obtained post I.V. administration of Oral and amp;amp; IV Readi-CAT and amp;amp; 100mL Isovue-370, and with oral contrast. Sagittal and coronal images were reconstructed. Individualized dose optimization techniques were used for this CT. COMPARISON: Comparison is made with prior ultrasound of the right upper quadrant dated June 18, 2022. FINDINGS: The visualized lung bases are unremarkable. The visualized portions of the heart are within normal limits. There is decreased attenuation of the liver consistent with steatosis. There is a 1.8 cm x 1.8 cm cyst in the anterior medial aspect of the right lobe of liver. Normal gallbladder and extrahepatic biliary system. Normal spleen. Normal pancreas. Normal bilateral adrenal glands. There is evidence of cortical thinning along the posterior medial aspect of the right kidney suggests over prior ischemic insult or infection. Normal left kidney. There is a small hiatal hernia. Normal small intestine. The patient is status post appendectomy. The appendix is visualized and appears normal. Normal abdominal aorta. Normal inferior vena cava. Normal retroperitoneum. Normal abdominal wall. Normal osseous structures. CT/Abdomen WITH IV Contrast IMPRESSION: Fatty infiltration of the liver. 1.8 cm x 1.8 cm cyst in the inferior medial aspect of the right lobe of the liver. Focal cortical thinning is seen in the posterior medial aspect of the right kidney. Electronically Signed: Mati Alicea MD at 12:34 EST ,
== END | disposition home or self-care (01) ==
LOC: CT 07:52
PROVIDERS: PCP Internal Medicine; Visit Provider Internal Medicine
DX: R10.12 Left upper quadrant pain (principal); K76.0 Fatty (change of) liver, not elsewhere classified
CPT/HCPCS: 74160; Q9967

== ENCOUNTER 2022-09-02 07:57 | Observation (INO) | payer OTHER, SELFPAY ==
[2022-09-02 07:58] VITALS: BP 187/83; PULSE 76; RESP 18; TEMP 36.1; O2SAT 100; BMI 31.6
--- NOTE | 2022-09-02 08:10 | CT_ITS ---
STUDY: CT SOFT TISSUE NECK WITH CONTRAST REASON FOR EXAM: Female, 61 years old. 2 week history of dysphagia and cough. RADIATION DOSAGE (If Supplied By Facility): CTDIvol = ( 17.03 ) mGy, DLP = ( 476.62 ) mGycm TECHNIQUE: The patient was scanned in a multi-detector CT scanner. High resolution transaxial imaging was performed following intravenous administration of IV 100mL Isovue-370. Sagittal and coronal images were reconstructed. Individualized dose optimization techniques were used for this CT. COMPARISON: None. FINDINGS: Normal bilateral parotid glands. 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 Normal bilateral parapharyngeal spaces. Normal bilateral carotid spaces. Normal bilateral sublingual and submandibular glands and spaces. Normal visualized nasopharynx. Normal retropharyngeal space. Normal perivertebral space. Normal visualized bilateral faucial tonsils. The visualized tongue, tongue base and oropharynx are normal. The visualized cervical lymph nodes (levels I-) are within normal size limits, and maintain normal morphology. There is no demonstrated solid or cystic mass lesion. There is no abnormal contrast enhancement. Normal epiglottis, bilateral vallecula and hypopharynx. The pre-epiglottic and paraglottic adipose spaces are normal. Normal visualized bilateral piriform sinuses, aryepiglottic folds, vocal cords, and arytenoid-cricoid articulations. Normal subglottic trachea. Mild heterogeneous appearance of the thyroid lobes. Normal visualized pulmonary apices. Normal visualized paranasal sinuses. Disc space narrowing at the C7-T1 level. CT/Soft Tissue Neck WITH Contrast IMPRESSION: Normal enhanced CT examination of the soft tissues of the neck. Electronically Signed: Mati Alicea MD at 9:26 EDT ,
--- NOTE | 2022-09-02 08:11 | RAD_ITS ---
STUDY: X-RAY CHEST REASON FOR EXAM: Female, 61 years old. Cough. Patient is unable to swallow. TECHNIQUE: PA and lateral views of the chest. COMPARISON: Comparison is made with prior study December 19, 2019. FINDINGS: Stable mild elevation of right hemidiaphragm. The lungs are clear and expanded. There is no demonstrated pleural abnormality. Normal size heart. Normal mediastinum and geeta. Normal visualized pulmonary arteries. Normal visualized aortic arch and descending thoracic aorta. There are diffuse degenerative changes of the visualized thoracic spine. Normal visualized ribs, clavicles, and shoulders. There is no demonstrated abnormality of the visualized soft tissue structures of the upper abdomen. RAD/Chest PA and Lateral IMPRESSION: Normal x-ray examination of the chest. Electronically Signed: Mati Alicea MD at 9:25 EDT ,
--- NOTE | 2022-09-02 08:12 | EX.ED.DYSGE1 ---
HPI History of Present Illness Chief Complaint: Sore Throat Informant: patient Narrative Narrative: Patient presents secondary to difficulty swallowing. She states she feels like things are getting stuck in her throat when she tries to swallow. This morning she tried to take her Synthroid and could not get it down. She states now that she thinks about it the last couple weeks she had to double swallow to really get everything down. She has had a mild cough. She denies throat pain. PFSH PFS Medical History Anxiety Autoimmune disorder Hypothyroidism Panic attacks Psoriasis Home Medications amlodipine 2.5 mg tablet 2.5 mg PO DAILY 05/21/14 [History Last Taken Unknown] clobetasol 0.05 % topical spray (Clobex) 59 ml TP QWEEK PRN Itching 05/21/14 [History Last Taken Unknown] hydrocodone-acetaminophen 5-325mg 5mg-325mg 1 tab PO Q4H PRN PRN Pain ##10 05/21/14 [Rx Last Taken Unknown] levothyroxine 88 mcg tablet 88 mcg PO DAILY 05/21/14 [History Last Taken Unknown] ondansetron 8 mg disintegrating tablet (Zofran ODT) 8 mg PO Q12H PRN PRN Nausea ##5 05/21/14 [Rx Last Taken Unknown] Allergy/AdvReac Type Severity Reaction Status Date / Time No Known Allergies Allergy Verified 09/02/22 07:57 Social History Smoking Status: Never smoker ROS ROS ED Constitutional Constitutional ED: Denies chills or fever(s) Eyes Eyes: Denies discharge from eye(s) ENT ENT ED: Reports other Details: Difficulty swallowing, feels like things get stuck in her throat. ; Denies discharge from eye(s), rhinorrhea or sore throat Cardiovascular Cardiovascular: Denies chest pain or palpitations Respiratory/Chest Respiratory/Chest: Reports cough; Denies dyspnea Gastrointestinal Gastrointestinal: Denies abdominal pain, nausea or vomiting Musculoskeletal Musculoskeletal: Denies back pain or extremity pain Integumentary Denies Abrasions or rash Neurologic Neurologic: Denies headache(s) or weakness Psychiatric Psychiatric: Denies anxiety or depression Allergic/Immunologic Allergic/Immunologic ED: Denies lip swelling or urticaria EXAM Physical Exam Const Vital Signs: 09/02/22 07:58 09/02/22 08:11 Temperature 97.0 F L Temperature Source Temporal Pulse Rate 76 Respiratory Rate 18 Respiratory Effort Normal Non-Labored Respiratory Pattern Normal Blood Pressure 187/83 H Blood Pressure Mean 117 Pulse Ox 100 Oxygen Delivery Method Room Air Positive well nourished and well developed General Appearance ED: well developed HEENT Reports normocephalic and head/scalp atraumatic HEENT Narrative: Speaks with a strong voice and is tolerating secretions well. Eyes PERRL and EOMs intact bilaterally Neck supple Chest Wall inspection of chest normal and palpation of chest normal Resp normal respiratory effort and clear to auscultation bilaterally Cardio regular rate and regular rhythm GI normal to inspection, nondistended, normoactive bowel sounds Palpation: soft Extremity normal to inspection Neuro oriented x3 and no sensory deficits noted Sensorium / Orientation: alert Motor Exam: strength 5/5 throughout Psych mental status grossly normal Skin no rashes or lesions noted MDM MDM MDM Narrative Medical decision making narrative: Labwork obtained to evaluate for leukocytosis, anemia, and electrolyte derangement. Chest x-ray obtained to evaluate for acute lung pathology, cardiac size, or mediastinal abnormality. CT scan of the neck obtained with contrast to evaluate for obstruction, mass. Lab Data Attestation: I reviewed the patient's lab results. Labs: Laboratory Results - last 24 hr 09/02/22 09/02/22 08:25 08:25 WBC 6.5 RBC 4.92 Hgb 14.9 Hct 44.8 MCV 91.1 MCH 30.3 MCHC 33.3 RDW Std Deviation 41.1 RDW Coeff of Cathy 12.4 Plt Count 351 MPV 9.9 Immature Gran % (Auto) 0.200 Neut % (Auto) 52.0 Lymph % (Auto) 29.6 [place] % (Auto) 9.5 Eos % (Auto) 7.8 H Baso % (Auto) 0.9 Absolute Neuts (auto) 3.4 Absolute Lymphs (auto) 1.93 Nucleated RBC % 0 Sodium 139 Potassium 3.6 Chloride 102 Carbon Dioxide 30.0 Anion Gap 7 BUN 13 Creatinine 0.87 Estim Creat Clear Calc 61.88 Est GFR (MDRD) Af Amer 86 Est GFR (MDRD) Non-Af 71 BUN/Creatinine Ratio 15.0 Glucose 102 Calcium 9.7 Radiography Chest X-Ray - ED: 2 View, Read by ED Physician, Normal, Lungs and No Infiltrates Diagnostic Testing: Clinical Impression(s) from Imaging Studies Soft Tissue Neck CT 09/02/22 08:10 IMPRESSION: Normal enhanced CT examination of the soft tissues of the neck. Electronically Signed: Mati Alicea MD at 9:26 EDT , Chest X-Ray 09/02/22 08:11 IMPRESSION: Normal x-ray examination of the chest. Electronically Signed: Mati Alicea MD at 9:25 EDT , Treatment and Re-Evaluation :: CBC and chemistry studies are unremarkable. Two-view chest x-ray per my interpretation reveals no evidence of infiltrate. Radiology interpretation is reviewed. CT scan of the neck with contrast reveals no acute abnormalities. I spoke with Dr. Bruna ROMERO. He is concerned that this may be more of an esophageal dysmotility or obstruction. He did request hospitalist evaluation for admission and he will see her in consult with plan for an upper scope. Hospitalist is on page at this time. Discharge Plan Triage Chief Complaint: Sore Throat ED Provider: Hailey Oates Dx/Rx/DC Orders Clinical Impression: Dysphagia Prescriptions: No Action amlodipine 2.5 MG tablet 2.5 mg PO DAILY levothyroxine 88 MCG tablet 88 mcg PO DAILY clobetasol [Clobex] 59 ML spray,non-aerosol 59 ml TP QWEEK PRN (Reason: Itching) hydrocodone-acetaminophen 1 TABLET tablet 1 tab PO Q4H PRN PRN (Reason: Pain) Qty: 10 0RF ondansetron [Zofran ODT] 8 MG tablet,disintegrating 8 mg PO Q12H PRN PRN (Reason: Nausea) Qty: 5 0RF Rx Instructions: Primary Care Provider: Holly Braun Referrals: Fast,Holly, DO [Primary Care Provider] - Disposition Disposition: Acute Care Hospital [facility]
[2022-09-02 08:33] LABS: Absolute Lymphocyte Count 1.93 X10^3/uL (0.83-4.51); Absolute Neutrophil Count 3.4 X10^3/uL (2.0-7.7); Basophil# 0.06 X10^3/uL; Basophil% 0.9 % (0-1); Eosinophil# 0.51 X10^3/uL; Eosinophils% 7.8 % (0-5); Hematocrit 44.8 % (37-47); Hemoglobin 14.9 g/dL (12.0-15.0); Lymphocyte # 1.93 X10^3/ul (0.83-4.51); Lymphocyte % 29.6 % (19-41); Mean Corp Hgb Conc 33.3 g/dL (32-36); Mean Corpuscular Hgb 30.3 pg (27.0-32.0); Mean Corpuscular Volume 91.1 fL (81-99); Mean Platelet Vol. 9.9 fl (6.2-12.0); Monocyte# 0.62 X10^3/uL; Monocyte% 9.5 % (0-10); NRBC Flagged by Analyzer 0 % (0-5); Neutrophil # 3.39 X10^3/uL (2.7-7.7); Platelet Count 351 K/mm3 (150-450); RBC Distribution Width CV 12.4 % (11.6-14.6); RBC Distribution Width SD 41.1 fl (35.1-43.9); Red Blood Count 4.92 M/mm3 (4.2-5.4); White Blood Count 6.5 K/mm3 (4.4-11.0)
[2022-09-02 08:44] LABS: Anion Gap 7 (5-15); BUN 13 mg/dL (7-18); Calcium,Total 9.7 mg/dL (8.5-10.1); Chloride 102 mmol/L (98-107); Creatinine, Serum 0.87 mg/dL (0.55-1.02); EST Glomerular Filtration Rate 71 mL/min (>60); Est Glom Filt Rate - Afr Amer 86 mL/min (>60); Estimated Creatinine Clearance 61.88 ml/min; Glucose 102 mg/dL (74-106); Potassium 3.6 mmol/L (3.5-5.1); Sodium Level 139 mmol/L (136-145)
[2022-09-02 09:57] VITALS: BP 167/90; PULSE 69; RESP 16; O2SAT 97
--- NOTE | 2022-09-02 09:59 | PCM.HP.STD ---
HPI - General General Date of Admission: 09/02/22 Date of Service: 09/02/22 Chief Complaint: Intermittent partial/incomplete dysphagia for 3 months HPI Narrative VU HARVEY, is a 61 F came to ED for dysphagia that feels more concerning for last couple weeks although she had intermittent infrequent dysphagia for for 3 months. She noticed more for last couple weeks that she has to swallow 2-3 times. She feels something difficult to swallow or is stuck, deep in her throat/neck. She is able to swallow saliva. Today's she tried to swallow thyroid pill but could not get it down. She has history of chronic sinusitis. She also history of hypothyroidism and takes thyroid pill and psoriasis. She has mild intermittent dry cough but no other symptoms. She also referred to shank carrier by PCP for mild chronic dry cough. Patient denies any prior history of dysphagia. Never had EGD. Denies any history of thyroid goiter or surgery. She had appendectomy in the past Family history noncontributory to the present illness. [facility] Medical History Anxiety Autoimmune disorder Hypothyroidism Panic attacks Psoriasis Home Medications clobetasol 0.05 % topical spray (Clobex) 59 ml TP QWEEK PRN Itching 05/21/14 [History Last Taken 09/01/22] levothyroxine 88 mcg tablet 88 mcg PO MOTUWETHFRSA Check with primary doctor 05/21/14 [History Last Taken 09/02/22 88] levothyroxine 88 mcg tablet 132 mcg PO SELLERS 09/02/22 [History Last Taken Unknown] Allergy/AdvReac Type Severity Reaction Status Date / Time No Known Allergies Allergy Verified 09/02/22 07:57 Family History no significant family his no significant family history Social History Smoking Status: Never smoker ROS ROS Narrative Constitutional: Denies fatigue and weakness. No fever. No acute flulike symptoms except mild chronic cough. HEENT: Reports systems reviewed and no addt'l complaints, except as documented Respiratory/Chest: Occasional cough probably allergic and chronic. No acute shortness of breath. CVS: No chest pain. Gastrointestinal: Denies coffee ground emesis, hematemesis or vomiting Genitourinary: Denies burning urination or new urinary tract symptoms Musculoskeletal: Denies chronic joint pain or limited range of motion. No acute injury Neurologic: Denies seizure-like symptoms. No acute strokelike symptoms skin: Chronic intermittent itching. Psoriasis Endocrinology: Reports systems reviewed and no addt'l complaints, except as documented Hematologic/Lymphatic: Reports systems reviewed and no addt'l complaints, except as documented Rest 14 ROS are negative except as mentioned in HPI Vital Signs Vital Signs Vital Signs: 09/02/22 07:58 09/02/22 08:11 09/02/22 09:57 Temperature 97.0 F L Temperature Source Temporal Pulse Rate 76 69 Respiratory Rate 18 16 Respiratory Effort Normal Non-Labored Respiratory Pattern Normal Blood Pressure 187/83 H 167/90 H Blood Pressure Mean 117 115 Pulse Ox 100 97 Oxygen Delivery Method Room Air Room Air Weight Weight: 190 lb 6.4 oz Body Mass Index (BMI) 31.6 Physical Exam Narrative Physical exam General: Alert, Oriented x3, Cooperative HEENT: Atraumatic, PERRLA, EOMI, Normocephalic Oral: No Gingival or Mucosal Lesions/ Ulcerations. No enlarged tonsil. Can swallow water and saliva. Soft palate, uvula/lateral pharyngeal wall visualized. Neck: Thyroid inferior margin palpable. No palpable thyroid nodule. Supple, No JVD, Negative Carotid Bruits Lungs: Air entry diminished in bilateral lung bases. No crepitation/rhonchi Cardiovascular: Regular rate, Regular Rhythm, Normal S1, Normal S2, No murmurs Abdomen: Bowel Sounds Present, Soft, Non Tender, Non-Distended : No renal angle tenderness. No suprapubic tenderness. Extremities: No edema, Capillary Refill Less than 3 Seconds Skin: Mild rough skin and itching. Musculoskeletal: No Tenderness to Palpation of Joints or Extremities Neurological: Cranial nerves II-XII grossly intact, DTR 2+/4 and Symmetrical, Neuro grossly intact Psych/Mental Status: Normal Affect, Appropriate. Results Lab / Micro Data Result Diagrams: 09/02/22 08:25 09/02/22 08:25 Labs: Laboratory Results - last 24 hr 09/02/22 08:25: WBC 6.5, RBC 4.92, Hgb 14.9, Hct 44.8, MCV 91.1, MCH 30.3, MCHC 33.3, RDW Std Deviation 41.1, RDW Coeff of Cathy 12.4, Plt Count 351, MPV 9.9, Immature Gran % (Auto) 0.200, Neut % (Auto) 52.0, Lymph % (Auto) 29.6, Dare % (Auto) 9.5, Eos % (Auto) 7.8 H, Baso % (Auto) 0.9, Absolute Neuts (auto) 3.4, Absolute Lymphs (auto) 1.93, Nucleated RBC % 0 09/02/22 08:25: Sodium 139, Potassium 3.6, Chloride 102, Carbon Dioxide 30.0, Anion Gap 7, BUN 13, Creatinine 0.87, Estim Creat Clear Calc 61.88, Est GFR (MDRD) Af Amer 86, Est GFR (MDRD) Non-Af 71, BUN/Creatinine Ratio 15.0, Glucose 102, Calcium 9.7 Radiology Impression Soft Tissue Neck CT 09/02/22 08:10 IMPRESSION: Normal enhanced CT examination of the soft tissues of the neck. Electronically Signed: Mati Alicea MD at 9:26 EDT , Chest X-Ray 09/02/22 08:11 IMPRESSION: Normal x-ray examination of the chest. Electronically Signed: Mati Alicea MD at 9:25 EDT , Assessment & Plan Assessment/Plan (1) Dysphagia: PLAN: Plan This 61-year-old female being admitted for evaluation of intermittent,/partial incomplete dysphagia 1. Partial/incomplete intermittent dysphagia: As per history it seems patient has intermittent and partial dysphagia, exact etiology unclear. Double air barium contrast esophagogram ordered. GI is consulted for possible EGD. Patient not in acute respiratory distress and cannot swallow saliva. Patient might have eosinophilic/allergic esophagitis or esophageal web or GERD. She denies any new medication or antibiotic or doxycycline as a red flag for pill esophagitis. 2. Hypothyroidism possible Jess's thyroiditis: TSH and free T4 tomorrow AM. 3. Psoriasis: Patient on clobetasol topical spray. 4. Hypertension: Blood pressure in normal range. On amlodipine 2.5 mg daily. 5. Other comorbidities include anxiety. Autoimmune disorder listed in past medical history but she could not tell me any other specific autoimmune disorder other than psoriasis and hypothyroidism. VTE prophylaxis: Heparin 500 subcutaneous every 8 hourly. Living will/advanced directive/end of life care: Patient does not have living will or advanced directive. After discussion of benefits/risks procedures involved with full code, DNR CC arrest and DNR CC, the patient opted for full code. Patient does want artificial life support including intubation, tube feed, ventilator and/chest compression, central venous catheter, vasopressor and DC shock if needed Total time spent in [id number] encounter in discussion of advanced directive 17 minutes. Laboratory Results 09/02/22 08:25: WBC 6.5, RBC 4.92, Hgb 14.9, Hct 44.8, MCV 91.1, MCH 30.3, MCHC 33.3, RDW Std Deviation 41.1, RDW Coeff of Cathy 12.4, Plt Count 351, MPV 9.9, Immature Gran % (Auto) 0.200, Neut % (Auto) 52.0, Lymph % (Auto) 29.6, Dare % (Auto) 9.5, Eos % (Auto) 7.8 H, Baso % (Auto) 0.9, Absolute Neuts (auto) 3.4, Absolute Lymphs (auto) 1.93, Nucleated RBC % 0 09/02/22 08:25: Sodium 139, Potassium 3.6, Chloride 102, Carbon Dioxide 30.0, Anion Gap 7, BUN 13, Creatinine 0.87, Estim Creat Clear Calc 61.88, Est GFR (MDRD) Af Amer 86, Est GFR (MDRD) Non-Af 71, BUN/Creatinine Ratio 15.0, Glucose 102, Calcium 9.7 Charges/Coding Visit Charges Inpatient E&M: 89914 Init Hosp L3
[2022-09-02 10:30] VITALS: BP 167/90; PULSE 69; RESP 16; TEMP 36.1; O2SAT 97
[2022-09-02 10:56] VITALS: BMI 30.1
[2022-09-02 11:10] VITALS: BP 147/82; PULSE 65; RESP 18; TEMP 36.8; O2SAT 97
[2022-09-02] MEDS: Lactated Ringers 1,000 ML 75 ML IV (11:18)
--- NOTE | 2022-09-02 12:51 | RAD_ITS ---
STUDY: X-RAY - ESOPHAGUS (BARIUM SWALLOW) WITH FLUOROSCOPY REASON FOR EXAM: Female, 61 years old. Dysphagia in throat TECHNIQUE: 18 view(s) of the esophagus were obtained following swallowing of barium. FLUOROSCOPY TIME (if supplied): (50 seconds) minutes/seconds. 27.32 mGy COMPARISON: None. FINDINGS: There is no demonstrated esophageal foreign body. There is no demonstrated stricture or mucosal abnormality. Normal gastroesophageal junction, without a demonstrated hiatal hernia. The patient ingested a 12 mm tablet at bedtime without any difficulty. Normal visualized aortic arch and descending thoracic aorta. Normal visualized pulmonary parenchyma. There are diffuse degenerative changes of the visualized thoracic spine. RAD/Esophagus Dual Contrast IMPRESSION: Normal plain film x-ray examination (barium swallow) of the esophagus. Electronically Signed: Mati Alicea MD at 14:28 EDT ,
[2022-09-02] MEDS: Heparin Injection (Vial) 5,000 UNIT/ML VIAL 5000 UNIT SC ×2 (14:36→21:32)
[2022-09-02 15:24] VITALS: BP 148/67; PULSE 70; RESP 18; TEMP 36.6; O2SAT 96
[2022-09-02 20:05] VITALS: BP 136/79; PULSE 70; RESP 16; TEMP 36.6; O2SAT 96
--- NOTE | 2022-09-02 20:44 | CON.PCM.GI_ITS ---
HPI Consult Data Date of Consult: 09/02/22 HPI Narrative Reason for Consultation: dysphagia HPI Narrative: VU HARVEY, is a 61 F who presents secondary to difficulty swallowing.? She states she feels like things are getting stuck in her throat when she tries to swallow.? This morning she tried to take her Synthroid and could not get it down.? She states now that she thinks about it the last couple weeks she had to double swallow to really get everything down.? She has had a mild cough.? She denies throat pain. She had a Chest xray, soft tissue ct scan of the neck and barium swallow were all normal. She is still having trouble swallowing solids. [facility] Medical History Anxiety Autoimmune disorder Hypothyroidism Panic attacks Psoriasis Home Medications clobetasol 0.05 % topical spray (Clobex) 59 ml TP QWEEK PRN Itching 05/21/14 [History Last Taken 09/01/22] levothyroxine 88 mcg tablet 88 mcg PO MOTUWETHFRSA Check with primary doctor 05/21/14 [History Last Taken 09/02/22 88] levothyroxine 88 mcg tablet 132 mcg PO SELLERS 09/02/22 [History Last Taken Unknown] Allergy/AdvReac Type Severity Reaction Status Date / Time No Known Allergies Allergy Verified 09/02/22 07:57 Family History no significant family his Social History Smoking Status: Never smoker ROS ROS Narrative Constitutional: Denies fatigue and weakness. No fever. No acute flulike symptoms except mild chronic cough. HEENT: Reports systems reviewed and no addt'l complaints, except as documented Respiratory/Chest: Occasional cough probably allergic and chronic. No acute shortness of breath. CVS: No chest pain. Gastrointestinal: Denies coffee ground emesis, hematemesis or vomiting Genitourinary: Denies burning urination or new urinary tract symptoms Musculoskeletal: Denies chronic joint pain or limited range of motion. No acute injury Neurologic: Denies seizure-like symptoms. No acute strokelike symptoms skin: Chronic intermittent itching. Psoriasis Endocrinology: Reports systems reviewed and no addt'l complaints, except as documented Hematologic/Lymphatic: Reports systems reviewed and no addt'l complaints, except as documented Rest 14 ROS are negative except as mentioned in HPI Physical Exam Narrative Physical exam General: Alert, Oriented x3, Cooperative HEENT: Atraumatic, PERRLA, EOMI, Normocephalic Oral: No Gingival or Mucosal Lesions/ Ulcerations. No enlarged tonsil. Can swallow water and saliva. Soft palate, uvula/lateral pharyngeal wall visualized. Neck: Thyroid inferior margin palpable. No palpable thyroid nodule. Supple, No JVD, Negative Carotid Bruits Lungs: Air entry diminished in bilateral lung bases. No crepitation/rhonchi Cardiovascular: Regular rate, Regular Rhythm, Normal S1, Normal S2, No murmurs Abdomen: Bowel Sounds Present, Soft, Non Tender, Non-Distended : No renal angle tenderness. No suprapubic tenderness. Extremities: No edema, Capillary Refill Less than 3 Seconds Skin: Mild rough skin and itching. Musculoskeletal: No Tenderness to Palpation of Joints or Extremities Neurological: Cranial nerves II-XII grossly intact, DTR 2+/4 and Symmetrical, Neuro grossly intact Psych/Mental Status: Normal Affect, Appropriate. Medical Records Data Medical Nutrition Assessment Dietitian: Malnutrition Criteria Met Start: 09/02/22 14:57 Freq: Status: Active Protocol: Document 09/02/22 14:57 RMA (Rec: 09/02/22 14:57 RMA [id number]) Nutrition Malnutrition Evidence of Malnutrition Exists Yes Malnutrition (severe): Acute Illness/Injury Evidenced By Suboptimal Energy Intake ( Severe),Weight Loss (Severe) Intake Problem Inadequate Oral Intake Etiology related to swallowing difficulty Signs/Symptoms as evidenced by NPO Status Active Problem Clinical Problem Acute Disease or Injury Related Malnutrition Etiology Severe pro-dre malnutrition in the context of acute condition related to swallowing difficulty Signs/Symptoms as evidenced by currently NPO, weight loss~3% x 2 weeks and consuming less than 50% estimated nutrition needs x past 2 weeks Status Active Problem Recommendation Dietitian Recommendations/Changes Recommend advance diet as tolerated to Regular with consistency/texture changes as indicated given swallowing difficulty. Ensure plus high protein as needed once diet advanced from NPO. Diet education as indicated. Lab / Micro Data Result Diagrams: 09/02/22 08:25 09/02/22 08:25 Labs: Laboratory Results - last 24 hr 09/02/22 08:25: WBC 6.5, RBC 4.92, Hgb 14.9, Hct 44.8, MCV 91.1, MCH 30.3, MCHC 33.3, RDW Std Deviation 41.1, RDW Coeff of Cathy 12.4, Plt Count 351, MPV 9.9, Immature Gran % (Auto) 0.200, Neut % (Auto) 52.0, Lymph % (Auto) 29.6, [place] % (Auto) 9.5, Eos % (Auto) 7.8 H, Baso % (Auto) 0.9, Absolute Neuts (auto) 3.4, Absolute Lymphs (auto) 1.93, Nucleated RBC % 0 09/02/22 08:25: Sodium 139, Potassium 3.6, Chloride 102, Carbon Dioxide 30.0, Anion Gap 7, BUN 13, Creatinine 0.87, Estim Creat Clear Calc 61.88, Est GFR (MDRD) Af Amer 86, Est GFR (MDRD) Non-Af 71, BUN/Creatinine Ratio 15.0, Glucose 102, Calcium 9.7 09/02/22 08:25: Magnesium 2.0 Radiology Impression Soft Tissue Neck CT 09/02/22 08:10 IMPRESSION: Normal enhanced CT examination of the soft tissues of the neck. Electronically Signed: Mati Alicea MD at 9:26 EDT , Chest X-Ray 09/02/22 08:11 IMPRESSION: Normal x-ray examination of the chest. Electronically Signed: Mati Alicea MD at 9:25 EDT , Barium Swallow X-Ray 09/02/22 12:51 IMPRESSION: Normal plain film x-ray examination (barium swallow) of the esophagus. Electronically Signed: Mati Alicea MD at 14:28 EDT Reading Location ID and State: [id number] , Service support , Assessment & Plan Assessment/Plan (1) Dysphagia: PLAN: Plan This 61-year-old female being admitted for evaluation of intermittent,/partial incomplete dysphagia. He denied any associated weight loss, melena, or chest pain. Physical?examination was within normal limits?with no pallor or?lymphad enopathy. Laboratory studies, including a chemistry panel, complete blood count and liver functions were unremarkable.?The differential diagnosis for esophageal dysphagia is globus hystericus, esophageal dysmotility disorder, Eosinophilic Esophagitis. She will undergo an upper endoscopy tomorrow. Charges/Coding Visit Charges Inpatient E&M: 79746 Init Hosp L2
[2022-09-03] VITALS (9 sets, daily range): BP systolic 118–143; BP diastolic 66–83; PULSE 66–90; RESP 16–20; TEMP 36.5–36.9; O2SAT 91–99
--- NOTE | 2022-09-03 | ESO_PTH ---
PATIENT: VU HARVEY LOC: MS3 U#:[id number] AGE/SX: 61/F ROOM: [facility] [place] RE09/02/[address]: Dr. Tolu Rodriguez MD : 1960 BED: 1 DIS: 09/03/2022 SPEC #: [id number] RECD: 09/03/22 17:06 STATUS: RYAN COMER #: [id number] DEANA: 09/03/22 00:[address]: Raman Mcfarland DEPT: SURGICAL PATHOLOGY RECD BY: Fortino Berumen ENTERED: 09/04/22 11:50 SP TYPE: ESOPH BX OTHR DR: DO Dr. Tolu Ott MD Tissues: Esophagus, NOS Procedures: Special Stain Group II Surgery Specimen Level IV Alcian Blue/PAS (control) Comments: @ Ordering doctor for SUIV edited from to @ by KOSTAS at 09/04/22 1524 @ Submitting doctor edited from to @ by RGOOD at 09/04/22 1524 HEADER OPERATION: EGD ([facility] [place]) with biopsy and electrohemostasis PRE-OP DIAGNOSIS: Dysphagia TISSUE SUBMITTED: Distal esophagus biopsy MICROSCOPIC DIAGNOSIS Distal esophagus, biopsy: Fragments of gastroesophageal mucosa with chronic inflammation. Intestinal metaplasia (goblet cell metaplasia) not identified. Changes consistent with eosinophilic esophagitis. See comment. TONE:mihai 09/05/2022 COMMENT Alcian blue/PAS stain with matched control is used in the evaluation of the specimen. Increased number of eosinophils (>20 per high power field) are noted consistent with eosinophilic esophagitis. Correlation with clinical, endoscopic findings and appropriate follow up are necessary. MICROSCOPIC DESCRIPTION Slides are reviewed. GROSS DESCRIPTION Received in fixative is one container labeled with the patient's name and designated distal esophagus biopsy. The specimen consists of multiple irregular fragments of light jeong soft tissue that in aggregate measure 1.0 x 0.3 x 0.1 cm. The specimen is totally submitted in one cassette. / SJ:mihai 09/04/2022 TC:3 CPT: 80707, 75705
--- NOTE | 2022-09-03 08:25 | DCINST_ITS ---
Discharge Instructions Diet Discharge Diet: No restrictions Activity Discharge Activity: Return to Normal Activity Weight Bearing Status: Weight bearing as tolerated Dressing / Incision Call your doctor if you observe: Fever of 101 or Higher, Coldness, Increased Pain, Numbness or Tingling, Change in Color, Inability to urinate, Inability to have a bowel movement, Using more than 1 pad per hour, Shortness of breath, Dizziness, Fainting spells, Swelling in the ankles, Chest pain, Prolonged hiccupping, Increased palpitations (irregular heartbeat) and Calf discomfort Follow Up Care When: IN 2 WEEKS Test Results: Test results from this visit will be discussed in further detail at your follow- up appointment, if applicable. Discharge Plan Admission Admit Date/Time: 09/02/22 10:00 Primary Reason for Your Visit: Intermittent dysphagia most likely due to GERD. Attending Provider: Tolu Rodriguez Primary Care Provider: Holly Braun Discharge Orders/Prescriptions Prescriptions: New pantoprazole [Protonix] 40 mg tablet,delayed release (DR/EC) 40 mg PO BID Qty: 60 2RF Rx Instructions: 40 mg twice daily for 2 months and then once daily. levothyroxine 100 mcg tablet 100 mcg PO DAILY Qty: 30 1RF Rx Instructions: Before breakfast. Continued clobetasol [Clobex] 59 ML spray,non-aerosol 59 ml TP QWEEK PRN (Reason: Itching) Discontinued levothyroxine 88 MCG tablet 88 mcg PO MOTUWETHFRSA levothyroxine 88 mcg Tablet 132 mcg PO SELLERS Referrals / Follow Up: Holly Braun DO [Primary Care Provider] - Raman Mcfarland DO [Med Staff - Active Staff] - Within 1 Month (For GERD) Disposition Disposition (needs filled in before D/C Order can be placed): Home, Self Care
[2022-09-03] MEDS: Acetaminophen 650 MG Suppository RC (11:59)
--- NOTE | 2022-09-03 14:16 | NURSING ---
pt off floor for egd
--- NOTE | 2022-09-03 14:39 | PCM.DC.SUM ---
Providers Date of Admission: 09/02/22 Date of Discharge: 09/03/22 Primary Care Physician: Dr. Holly Braun, Consultations 09/02/22 11:05 Consult: Gastroenterology Routine Consulting Provider: [facility] Reason for Consult: dysphagia EMERGENT Consult: No MD Notified: Yes Date Notified: 09/02/22 Time Notified: 10:05 Method of Notification: ED Physician Initiated Reason For Visit: DYSPHAGIA Diagnosis Discharge Diagnosis (1) Dysphagia: Status: Acute Code(s): R13.10 - Dysphagia, unspecified Plan This 61-year-old female being admitted for evaluation of intermittent,/partial incomplete dysphagia 1. Partial/incomplete intermittent dysphagia due to esophagitis/GERD: As per history it seems patient has intermittent and partial dysphagia, exact etiology unclear. Double air barium contrast esophagogram ordered. GI is consulted for possible EGD. Patient not in acute respiratory distress and cannot swallow saliva. Patient might have eosinophilic/allergic esophagitis or esophageal web or GERD. She denies any new medication or antibiotic or doxycycline as a red flag for pill esophagitis. 09/03: Barium esophagogram was yesterday individually reviewed and reported normal. Patient had EGD today shows GERD/esophagitis. Patient is discharged on pantoprazole 40 mg twice daily for 8 weeks and then once daily. Follow-up with Dr. Mcfarland in clinic in 1 month. 2. Hypothyroidism possible Jess's thyroiditis: TSH high 24.1. Patient on levothyroxine 88 mcg daily except on Thursday. On Thursday, she takes 132 mcg. Levothyroxine increased to 100 mcg daily. Follow-up thyroid function test after 6 weeks. 3. Psoriasis: Patient on clobetasol topical spray. 4. Hypertension: Blood pressure in normal range. Blood pressure is controlled. Patient not on antihypertensive medications 5. Other comorbidities include anxiety. Autoimmune disorder listed in past medical history but she could not tell me any other specific autoimmune disorder other than psoriasis and hypothyroidism. VTE prophylaxis: Heparin 500 subcutaneous every 8 hourly. Discharge medication reconciliation done. Discharge follow-up instructions completed. Discharge process discussed with the patient and all questions were answered to patient's satisfaction. Total time spent, exact 35 minutes on discharge meds reconciliation, examination, coordination of care with nurses and ancillary staff, review of imaging and blood test and discussion with the patient on follow-up instructions. Living will/advanced directive/end of life care: Patient does not have living will or advanced directive. After discussion of benefits/risks procedures involved with full code, DNR CC arrest and DNR CC, the patient opted for full code. Patient does want artificial life support including intubation, tube feed, ventilator and/chest compression, central venous catheter, vasopressor and DC shock if needed Laboratory Results 09/02/22 08:25: WBC 6.5, RBC 4.92, Hgb 14.9, Hct 44.8, MCV 91.1, MCH 30.3, MCHC 33.3, RDW Std Deviation 41.1, RDW Coeff of Cathy 12.4, Plt Count 351, MPV 9.9, Immature Gran % (Auto) 0.200, Neut % (Auto) 52.0, Lymph % (Auto) 29.6, Denali % (Auto) 9.5, Eos % (Auto) 7.8 H, Baso % (Auto) 0.9, Absolute Neuts (auto) 3.4, Absolute Lymphs (auto) 1.93, Nucleated RBC % 0 09/02/22 08:25: Sodium 139, Potassium 3.6, Chloride 102, Carbon Dioxide 30.0, Anion Gap 7, BUN 13, Creatinine 0.87, Estim Creat Clear Calc 61.88, Est GFR (MDRD) Af Amer 86, Est GFR (MDRD) Non-Af 71, BUN/Creatinine Ratio 15.0, Glucose 102, Calcium 9.7 Medications at Discharge Home Medications clobetasol 0.05 % topical spray (Clobex) 59 ml TP QWEEK PRN Itching 05/21/14 levothyroxine 100 mcg tablet 100 mcg PO DAILY #30 tabs 09/03/22 pantoprazole 40 mg tablet,delayed release (Protonix) 40 mg PO BID #60 tabs 09/03/22 Physical Exam Narrative Seen and examined. No acute issues. Can swallow water and saliva. Physical exam General: Alert, Oriented x3, Cooperative HEENT: Atraumatic, PERRLA, EOMI, Normocephalic Oral: No Gingival or Mucosal Lesions/ Ulcerations. No enlarged tonsil. Soft palate, uvula/lateral pharyngeal wall well visualized. Neck: Thyroid inferior margin palpable. No palpable thyroid nodule. Supple, No JVD, Negative Carotid Bruits Lungs: Air entry diminished in bilateral lung bases. No crepitation/rhonchi Cardiovascular: Regular rate, Regular Rhythm, Normal S1, Normal S2, No murmurs Abdomen: Bowel Sounds Present, Soft, Non Tender, Non-Distended : No renal angle tenderness. No suprapubic tenderness. Extremities: No edema, Capillary Refill Less than 3 Seconds Skin: Mild rough skin and itching. Musculoskeletal: No Tenderness to Palpation of Joints or Extremities Neurological: Cranial nerves II-XII grossly intact, DTR 2+/4 and Symmetrical, Neuro grossly intact Psych/Mental Status: Normal Affect, Appropriate. Medical Records Data Medical Nutrition Assessment Dietitian: Malnutrition Criteria Met Start: 09/02/22 14:57 Freq: Status: Active Protocol: Document 09/02/22 14:57 RMA (Rec: 09/02/22 14:57 RMA [id number]) Nutrition Malnutrition Evidence of Malnutrition Exists Yes Malnutrition (severe): Acute Illness/Injury Evidenced By Suboptimal Energy Intake ( Severe),Weight Loss (Severe) Intake Problem Inadequate Oral Intake Etiology related to swallowing difficulty Signs/Symptoms as evidenced by NPO Status Active Problem Clinical Problem Acute Disease or Injury Related Malnutrition Etiology Severe pro-dre malnutrition in the context of acute condition related to swallowing difficulty Signs/Symptoms as evidenced by currently NPO, weight loss~3% x 2 weeks and consuming less than 50% estimated nutrition needs x past 2 weeks Status Active Problem Recommendation Dietitian Recommendations/Changes Recommend advance diet as tolerated to Regular with consistency/texture changes as indicated given swallowing difficulty. Ensure plus high protein as needed once diet advanced from NPO. Diet education as indicated. Weight / BMI Weight Weight: 181 lb 3 oz Body Mass Index (BMI) 30.1 ABG / Lab / Microbiology Data Result Diagrams: 09/02/22 08:25 09/02/22 08:25 Laboratory: Laboratory Results - last 24 hr 09/03/22 05:50: TSH 24.10 H Radiography Diagnostic Testing: Radiology Impression Barium Swallow X-Ray 09/02/22 12:51 IMPRESSION: Normal plain film x-ray examination (barium swallow) of the esophagus. Electronically Signed: Mati Alicea MD at 14:28 EDT , Meaningful Use Info Meaningful Use Diagnoses (Choose all that apply): None applicable Discharge Plan Admission Admit Date/Time: 09/02/22 10:00 Primary Reason for Your Visit: Intermittent dysphagia most likely due to GERD. Attending Provider: Tolu Rodriguez Primary Care Provider: Holly Braun Discharge Orders/Prescriptions Prescriptions: New pantoprazole [Protonix] 40 mg tablet,delayed release (DR/EC) 40 mg PO BID Qty: 60 2RF Rx Instructions: 40 mg twice daily for 2 months and then once daily. levothyroxine 100 mcg tablet 100 mcg PO DAILY Qty: 30 1RF Rx Instructions: Before breakfast. Continued clobetasol [Clobex] 59 ML spray,non-aerosol 59 ml TP QWEEK PRN (Reason: Itching) Discontinued levothyroxine 88 MCG tablet 88 mcg PO MOTUWETHFRSA levothyroxine 88 mcg Tablet 132 mcg PO SELLERS Referrals / Follow Up: Holly Braun DO [Primary Care Provider] - Raman Mcfarland DO [Med Staff - Active Staff] - Within 1 Month (For GERD) Disposition Disposition (needs filled in before D/C Order can be placed): Home, Self Care Charges/Coding Visit Charges Inpatient E&M: 70465 Disch Hosp >30min
[2022-09-03] MEDS: Lactated Ringers 1,000 ML 15 ML IV (14:43)
--- NOTE | 2022-09-03 16:07 | OP.EGD_ITS ---
Patient Name: Shana Hirsch Procedure Date: 09/03/2022 3:06 PM Date of : 1960 Age: 61 Procedure: Upper GI endoscopy Indications: Dysphagia Providers: Raman Mcfarland DO Medicines: Monitored Anesthesia Care Patient Profile: This is a 61 year old female. Refer to note in patient chart for documentation of history and physical. Patient has symptoms of chronic dysphagia and dysphagia with solids. Complications: No immediate complications. Procedure: Pre-Anesthesia Assessment: - Prior to the procedure, a History and Physical was performed, and patient medications and allergies were reviewed. The patient is competent. The risks and benefits of the procedure and the sedation options and risks were discussed with the patient. All questions were answered and informed consent was obtained. Patient identification and proposed procedure were verified by the physician in the pre-procedure area. Mental Status Examination: alert and oriented. Airway Examination: normal oropharyngeal airway and neck mobility. Respiratory Examination: clear to auscultation. CV Examination: normal. Prophylactic Antibiotics: The patient does not require prophylactic antibiotics. Prior Anticoagulants: The patient has taken no previous anticoagulant or antiplatelet agents. ASA Grade Assessment: II - A patient with mild systemic disease. After reviewing the risks and benefits, the patient was deemed in satisfactory condition to undergo the procedure. The anesthesia plan was to use monitored anesthesia care (MAC). Immediately prior to administration of medications, the patient was re-assessed for adequacy to receive sedatives. The heart rate, respiratory rate, oxygen saturations, blood pressure, adequacy of pulmonary ventilation, and response to care were monitored throughout the procedure. The physical status of the patient was re-assessed after the procedure. After obtaining informed consent, the endoscope was passed under direct vision. Throughout the procedure, the patient's blood pressure, pulse, and oxygen saturations were monitored continuously. The gastroscope was introduced through the mouth, and advanced to the second part of duodenum. The upper GI endoscopy was accomplished without difficulty. The patient tolerated the procedure well. Scope In: 3:48:19 PM Scope Out: 3:59:15 PM Total Procedure Duration Time 0 hours 10 minutes 56 seconds Findings: LA Grade C (one or more mucosal breaks continuous between tops of 2 or more mucosal folds, less than 75% circumference) esophagitis with bleeding was found 37 to 40 cm from the incisors. Biopsies were taken with a cold forceps for histology. Verification of patient identification for the specimen was done. Area was successfully injected with 5 mL of a 1:10,000 solution of epinephrine for drug delivery. Coagulation for hemostasis using heater probe was successful. Estimated blood loss was minimal. A small hiatal hernia was present. No other significant abnormalities were identified in a careful examination of the stomach. The second portion of the duodenum was normal. Impression: - LA Grade C erosive esophagitis. Biopsied. Injected. Treated with a heater probe. - Small hiatal hernia. - Normal second portion of the duodenum. Recommendation: - Discharge patient to home. - Full liquid diet. - Continue present medications. - Await pathology results. - Repeat upper endoscopy in 4 months for surveillance. - Use Protonix (pantoprazole) 40 mg PO BID. Procedure Code(s): --- Professional --- 59431, 59, Esophagogastroduodenoscopy, flexible, transoral; with control of bleeding, any method 74257, 59, Esophagogastroduodenoscopy, flexible, transoral; with directed submucosal injection(s), any substance 44609, 51, Esophagogastroduodenoscopy, flexible, transoral; with biopsy, single or multiple CPT copyright 2017 [employer] [place] [employer]. All rights reserved. The codes documented in this report are preliminary and upon form setter supervisor review may be revised to meet current compliance requirements. Raman Mcfarland DO 09/03/2022 4:06:52 PM This report has been signed electronically. Number of Addenda: 0 Note Initiated On: 09/03/2022 3:06 PM
--- NOTE | 2022-09-03 16:07 | OP.CCLET_ITS ---
09/03/2022 Holly Braun Re : Upper GI endoscopy procedure for Shana Braun This procedure was performed on Saturday, September 03, 2022. My impressions and recommendations are as follows: Impressions : - LA Grade C erosive esophagitis. Biopsied. Injected. Treated with a heater probe. - Small hiatal hernia. - Normal second portion of the duodenum. Recommendations : - Discharge patient to home. - Full liquid diet. - Continue present medications. - Await pathology results. - Repeat upper endoscopy in 4 months for surveillance. - Use Protonix (pantoprazole) 40 mg PO BID. My findings are described in the full procedure note, which is enclosed. If I can be of further assistance, please feel free to contact me at . Sincerely, Raman Friend, 09/03/2022 4:06:52 PM This report has been signed electronically.
[2022-09-03] MEDS: Ipratropium/Albuterol Sulfate 3 ML AMPUL.NEB INHALATION (16:44)
[2022-09-03 17:01] LABS: T4 Free Direct 1.08 ng/dL (0.76-1.46)
== END 2022-09-03 20:40 | disposition home or self-care (01) ==
LOC: ED 09:49 → MS3 10:36
PROVIDERS: Anesthesiology; Internal Medicine Gastroenterology; Admitting Provider Internal Medicine; Emergency Provider Emergency Medicine; PCP Internal Medicine; Visit Provider Internal Medicine
PROC: 0DJ08ZZ Inspection of Upper Intestinal Tract, Via Natural or Artificial Opening Endoscopic (ICD-10-PCS; CPT 43235; principal; 2022-09-03 15:25)
DX: K22.11 Ulcer of esophagus with bleeding (principal); D89.89 Other specified disorders involving the immune mechanism, not elsewhere classified; R13.10 Dysphagia, unspecified; K44.9 Diaphragmatic hernia without obstruction or gangrene; Z79.899 Other long term (current) drug therapy; E03.9 Hypothyroidism, unspecified; Z79.890 Hormone replacement therapy; L40.9 Psoriasis, unspecified; I10 Essential (primary) hypertension
CPT/HCPCS: 43255; 43239; 36415; 70491; 71046; 74221; 80048; 83735; 84439; 84443; 85025; 88305; 88313; 94640; 96361; 96365; 96372; 97802; 99221; 99284; J7120; Q9967; A4216; G0378; J2405

== ENCOUNTER → 2022-09-04 | Outpatient (CLI) | payer OTHER, SELFPAY ==
--- NOTE | 2022-09-05 09:05 | PFT ---
INTRODUCTION: The patient is a 61-year-old female that presents for pulmonary function studies secondary to a diagnosis of chronic cough. Respiratory therapy reported good patient effort. Bronchodilators were used during testing. INTERPRETATION: Forced expiration spirometry demonstrates no evidence of a large airways obstructive ventilatory defect. There was no significant response to aerosolized bronchodilators. Spirograms are of good quality and plateau normally. Body plethysmography was performed and reveals lung volumes to be within normal limits. Diffusing capacity by single breath CO was also within normal limits. IMPRESSION: Grossly normal pulmonary function studies.
== END | disposition home or self-care (01) ==
PROVIDERS: PCP Internal Medicine; Referring Provider Internal Medicine; Visit Provider Internal Medicine
DX: R05.3 Chronic cough (principal)
CPT/HCPCS: 94060; 94726; 94729

== ENCOUNTER → 2022-09-22 | Outpatient (CLI) | payer OTHER, SELFPAY ==
[2022-09-22 12:35] LABS: Absolute Lymphocyte Count 1.66 X10^3/uL (0.83-4.51); Absolute Neutrophil Count 3.4 X10^3/uL (2.0-7.7); Basophil# 0.08 X10^3/uL; Basophil% 1.3 % (0-1); Eosinophil# 0.34 X10^3/uL; Eosinophils% 5.7 % (0-5); Hemoglobin 15.5 g/dL (12.0-15.0); Lymphocyte # 1.66 X10^3/ul (0.83-4.51); Lymphocyte % 27.8 % (19-41); Mean Corp Hgb Conc 32.3 g/dL (32-36); Mean Corpuscular Volume 92.8 fL (81-99); Mean Platelet Vol. 11.1 fl (6.2-12.0); Monocyte# 0.53 X10^3/uL; Monocyte% 8.9 % (0-10); NRBC Flagged by Analyzer 0 % (0-5); Neutrophil # 3.35 X10^3/uL (2.7-7.7); Neutrophil % 56.1 % (47-70); Platelet Count 350 K/mm3 (150-450); RBC Distribution Width CV 12.1 % (11.6-14.6); RBC Distribution Width SD 41.6 fl (35.1-43.9); Red Blood Count 5.17 M/mm3 (4.2-5.4)
[2022-09-24 15:08] LABS: Endomysial Antibody IgA Negative (Negative); Immunoglobulin A 323 mg/dL (87-352); t-Transglutaminase IgA <2 U/mL (0-3)
[2022-09-26 19:07] LABS: Anti-Centromere B Ab <0.2 AI (0.0-0.9); Anti-Chromatin 0.3 AI (0.0-0.9); Anti-Jo <0.2 AI (0.0-0.9); Anti-Scleroderma-70 AB <0.2 AI (0.0-0.9); Anti-dsDNA Ab <1 IU/mL (0-9); Beef <0.10 kU/L (Class 0); Chocolate <0.10 kU/L (Class 0); Corn <0.10 kU/L (Class 0); Egg, Whole <0.10 kU/L (Class 0); Milk (Cow) 2.12 kU/L (Class III); Peanut <0.10 kU/L (Class 0); Pork <0.10 kU/L (Class 0); RNP Ab <0.2 AI (0.0-0.9); SJOGREN'S Anti-SS-A test < 0.2 AI (0.0-0.9); SJOGREN'S Anti-SS-B test < 0.2 AI (0.0-0.9); Smith Ab <0.2 AI (0.0-0.9); Soybean <0.10 kU/L (Class 0); Wheat 0.15 kU/L (Class 0/I)
[2022-09-26 20:07] LABS: Cytoplasmic Ab (C-ANCA) <1:20 titer (Neg:<1:20); Immunoglobulin A 313 mg/dL (87-352); Immunoglobulin E 20 IU/mL (6-495); Immunoglobulin G 1221 mg/dL (586-1602); Immunoglobulin M 269 mg/dL (26-217); Perinuclear Ab (P-ANCA) <1:20 titer (Neg:<1:20)
== END | disposition home or self-care (01) ==
LOC: LAB 10:56
PROVIDERS: PCP Internal Medicine; Referring Provider Internal Medicine Gastroenterology; Visit Provider Internal Medicine Gastroenterology
DX: K22.10 Ulcer of esophagus without bleeding (principal)
CPT/HCPCS: 36415; 82784; 82785; 83516; 85025; 86003; 86005; 86225; 86235; 86255; 86256

== ENCOUNTER → 2022-12-12 | Outpatient (CLI) | payer OTHER, SELFPAY ==
--- NOTE | 2022-12-12 07:39 | US_ITS ---
STUDY: ABDOMINAL ULTRASOUND - RIGHT UPPER QUADRANT; ELASTOGRAPHY REASON FOR VISIT: Female, 62 years old. Fatty infiltration of the liver. TECHNIQUE: Ultrasound evaluation of the right upper quadrant was performed with real-time and static martin-scale imaging. Point quantification shear wave elastography was performed (Joongel). TECHNICAL QUALITY: Adequate. COMPARISON: Comparison is made with prior study dated June 18, 2022. FINDINGS: Liver: The liver measures 16.2 cm. There is increased echogenicity consistent with fatty infiltration. The bile ducts are within normal limits. There is hepatic color flow. The direction of portal flow is hepatopetal. There is a 2 cm x 2.2 cm x 1.6 cm cyst in the left lobe of the liver. Median liver stiffness measured 6.4 kPa. Gallbladder: Normal distended gallbladder. The gallbladder wall measures 2.1 mm. There is a negative sonographic Evangelista''s sign. There is no pericholecystic fluid. There are no gallstones. Common Bile Duct (C.B.D.): The common bile duct measures 3.3 mm. Pancreas: There is normal echogenicity of the visualized pancreas. There is no demonstrated pancreatic mass or cyst. Right Kidney: Normal size of the right kidney. The right kidney measures 9.9 cm x 4.2 cm x 4.1 cm. Normal renal cortex. The right cortex measures 1.7 cm. There is no demonstrated renal mass or cyst. There is no right hydronephrosis. US/ABD Limited w/ Elastography IMPRESSION: 1. Liver stiffness measures 6.4 kPa compatible with F2-F3 (Mild to moderate liver fibrosis) Metavir score. Electronically Signed: Mati Alicea MD at 16:25 EDT ,
== END | disposition home or self-care (01) ==
LOC: US 07:38
PROVIDERS: PCP Internal Medicine; Referring Provider Internal Medicine; Visit Provider Internal Medicine
DX: K76.0 Fatty (change of) liver, not elsewhere classified (principal)
CPT/HCPCS: 76705; 76981

== ENCOUNTER 2022-12-15 05:59 | Day surgery (SDC) | payer OTHER, SELFPAY ==
[2022-12-15] VITALS (9 sets, daily range): BP systolic 88–108; BP diastolic 55–73; PULSE 56–79; RESP 16; TEMP 36.2–36.3; O2SAT 95–100; BMI 26.4
[2022-12-15] MEDS: Lactated Ringers 1,000 ML 15 ML IV (06:33)
--- NOTE | 2022-12-15 07:07 | HP.PCM_ITS ---
[facility] - General General Date of Admission: 12/15/22 Date of Service: 12/15/22 Chief Complaint: Eosinophilic esophagitis and screening colonoscopy [facility] Narrative VU HARVEY, is a 62 F who presents today for evaluation of esophageal dysphagia and screening colonoscopy. She had intermittent infrequent dysphagia for for 3 months. She noticed more for last couple weeks that she has to swallow 2-3 times. She feels something difficult to swallow or is stuck, deep in her throat/neck. She is able to swallow saliva. Today's she tried to swallow thyroid pill but could not get it down. She has history of chronic sinusitis. She also history of hypothyroidism and takes thyroid pill and psoriasis. She has mild intermittent dry cough but no other symptoms. 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 Patient denies any prior history of dysphagia. Denies any history of thyroid goiter or surgery. She had appendectomy in the past. She underwent an emergent upper endoscopy and was diagnosed with a food bolus which was removed. She also had a random biopsies done esophagus that was positive for eosinophilic esophagitis. She arrives here for evaluation of her upper GI tract because of his to eosinophilic esophagitis and worsening esophageal dysphagia along with needing a screening colonoscopy. She had a colonoscopy possibly 10 years ago. She has no problems with abdominal pain, bloating, nausea, chest pain or shortness of breath. [facility] Medical History (Updated 12/11/22 @ 12:11 by Tila Serrato) Anxiety Arthritis Autoimmune disorder Cancer Dietary restriction Difficulty swallowing Dysphagia Fatty liver Gastric reflux History of irregular heartbeat Hypothyroidism Injury of head and neck Non-smoker Panic attacks Psoriasis Thyroid disease Wears glasses Home Medications levothyroxine 100 mcg tablet 100 mcg PO DAILY #30 tabs 09/03/22 [Rx Last Taken Unknown] pantoprazole 40 mg tablet,delayed release (Protonix) 40 mg PO BID #60 tabs 09/19/22 [Rx Last Taken Unknown] Allergy/AdvReac Type Severity Reaction Status Date / Time No Known Allergies Allergy Verified 12/15/22 06:22 Surgical History (Updated 12/11/22 @ 12:13 by Tila Serrato) History of appendectomy History of arthroscopy of knee History of esophagogastroduodenoscopy (EGD) History of lumpectomy History of surgery Social History Smoking Status: Never smoker ROS ROS Narrative Constitutional: Denies fatigue and weakness. No fever. No acute flulike s ymptoms except mild chronic cough. HEENT: Reports systems reviewed and no addt'l complaints, except as documented Respiratory/Chest: Occasional cough probably allergic and chronic. No acute shortness of breath. CVS: No chest pain. Gastrointestinal: Denies coffee ground emesis, hematemesis or vomiting Genitourinary: Denies burning urination or new urinary tract symptoms Musculoskeletal: Denies chronic joint pain or limited range of motion. No acute injury Neurologic: Denies seizure-like symptoms. No acute strokelike symptoms skin: Chronic intermittent itching. Psoriasis Endocrinology: Reports systems reviewed and no addt'l complaints, except as documented Hematologic/Lymphatic: Reports systems reviewed and no addt'l complaints, except as documented Rest 14 ROS are negative except as mentioned in HPI Vital Signs Vital Signs Vital Signs: 12/15/22 06:24 12/15/22 06:24 Temperature 97.3 F L Temperature Source Temporal Pulse Rate 79 Respiratory Rate 16 Respiratory Pattern Normal Blood Pressure 108/73 Blood Pressure Mean 84 Blood Pressure Source Monitor Blood Pressure Position Semi-Fowlers Blood Pressure Location Right Arm Pulse Ox 100 Oxygen Delivery Method Room Air Weight Weight: 158 lb 11.725 oz Body Mass Index (BMI) 26.4 Physical Exam Narrative Seen and examined. No acute issues. Can swallow water and saliva. Physical exam General: Alert, Oriented x3, Cooperative HEENT: Atraumatic, PERRLA, EOMI, Normocephalic Oral: No Gingival or Mucosal Lesions/ Ulcerations. No enlarged tonsil. Soft palate, uvula/lateral pharyngeal wall well visualized. Neck: Thyroid inferior margin palpable. No palpable thyroid nodule. Supple, No JVD, Negative Carotid Bruits Lungs: Air entry diminished in bilateral lung bases. No crepitation/rhonchi Cardiovascular: Regular rate, Regular Rhythm, Normal S1, Normal S2, No murmurs Abdomen: Bowel Sounds Present, Soft, Non Tender, Non-Distended : No renal angle tenderness. No suprapubic tenderness. Extremities: No edema, Capillary Refill Less than 3 Seconds Skin: Mild rough skin and itching. Musculoskeletal: No Tenderness to Palpation of Joints or Extremities Neurological: Cranial nerves II-XII grossly intact, DTR 2+/4 and Symmetrical, Neuro grossly intact Psych/Mental Status: Normal Affect, Appropriate. Assessment & Plan Assessment/Plan (1) Erosive esophagitis: (2) Screen for colon cancer: PLAN: Plan 62-year-old comes in for evaluation of upper and lower GI tract with history of eosinophilic esophagitis and esophageal dysphagia. She was explained alternatives, risk, benefits including not withstanding bleeding, infection, sepsis, perforation, need for emergent surgery . She will have an ASA of 2.
--- NOTE | 2022-12-15 07:15 | COLBX_PTH ---
PATIENT: VU HARVEY LOC: EN U#:[id number] AGE/SX: 62/F ROOM: RE12/15/[address]: Dr. Raman Mcfarland DO : 1960 BED: DIS: 12/15/2022 SPEC #: [id number] RECD: 12/15/22 08:13 STATUS: RYAN RESally #: [id number] DEANA: 12/15/22 07:[address]: Raman Mcfarland DEPT: SURGICAL PATHOLOGY RECD BY: Leyla Proctor ENTERED: 12/15/22 11:13 SP TYPE: COLON BX OTHR DR: Dr. Holly Braun DO Tissues: A - Esophagus, NOS B - Duodenum, NOS C - Cecum, NOS Procedures: Special Stain Group II Surgery Specimen Level IV Alcian Blue/PAS (control) HEADER OPERATION: Colonoscopy with biopsy, EGD with biopsies PRE-OP DIAGNOSIS: Erosive esophagitis, screening TISSUE SUBMITTED: A - Distal esophagus biopsy, B - Duodenum biopsy, C - Cecum polyp biopsy MICROSCOPIC DIAGNOSIS A. Distal esophagus, biopsy: Fragments of gastroesophageal mucosa with chronic inflammation. Intestinal metaplasia (goblet cell metaplasia) is not identified. See comment. B. Duodenum, biopsy: Fragments of duodenal mucosa, no pathologic diagnosis. C. Cecum polyp, biopsy: Fragments of colonic mucosa, no pathologic diagnosis. SJ:rg 12/16/2022 COMMENT A. Alcian blue/PAS stain with matched control is used in the evaluation of the specimen. MICROSCOPIC DESCRIPTION Slides are reviewed. GROSS DESCRIPTION A - Received in fixative is one container labeled with the patient's name and designated distal esophagus. The specimen consists of two irregular fragments of light jeong soft tissue that in aggregate measure 0.6 x 0.3 x 0.1 cm. The specimen is totally submitted in one cassette. B - Received in fixative is one container labeled with the patient's name and designated duodenum biopsy. The specimen consists of two irregular fragments of light jeong soft tissue that in aggregate measure 0.5 x 0.3 x 0.1 cm. The specimen is totally submitted in one cassette. C - Received in fixative is one container labeled with the patient's name and designated cecum polyp biopsy. The specimen consists of multiple irregular fragments of light jeong soft tissue that in aggregate measure 0.3 x 0.2 x 0.1 cm. The specimen is totally submitted in one cassette. / SJ:rg 12/15/2022 TC:3 CPT: 96937 x3, 60003
--- NOTE | 2022-12-15 07:50 | OP.CCLET_ITS ---
12/15/2022 Holly Braun Re : Upper GI endoscopy procedure for Shana Braun This procedure was performed on Thursday, December 15, 2022. My impressions and recommendations are as follows: Impressions : - Esophageal mucosal changes secondary to eosinophilic esophagitis. Biopsied. Dilated. - Normal stomach. - Erythematous duodenopathy. Biopsied. Recommendations : - Discharge patient to home. - Resume previous diet. - Continue present medications. - Await pathology results. My findings are described in the full procedure note, which is enclosed. If I can be of further assistance, please feel free to contact me at . Sincerely, Raman Mcfarland, 12/15/2022 7:49:26 AM This report has been signed electronically.
--- NOTE | 2022-12-15 07:50 | OP.EGD_ITS ---
Patient Name: Shana Hirsch Procedure Date: 12/15/2022 7:08 AM Date of : 1960 Age: 62 Procedure: Upper GI endoscopy Indications: Dysphagia, Esophageal reflux Providers: Raman Mcfarland DO Referring MD: Holly Braun Medicines: Monitored Anesthesia Care Patient Profile: This is a 62 year old female. Refer to note in patient chart for documentation of history and physical. Patient has symptoms of chronic dysphagia and chronic heartburn. Complications: No immediate complications. Procedure: Pre-Anesthesia Assessment: - Prior to the procedure, a History and Physical was performed, and patient medications and allergies were reviewed. The risks and benefits of the procedure and the sedation options and risks were discussed with the patient. All questions were answered and informed consent was obtained. Patient identification and proposed procedure were verified by the physician in the pre-procedure area. Mental Status Examination: alert and oriented. Airway Examination: normal oropharyngeal airway and neck mobility. Respiratory Examination: clear to auscultation. CV Examination: normal. Prophylactic Antibiotics: The patient does not require prophylactic antibiotics. Prior Anticoagulants: The patient has taken no anticoagulant or antiplatelet agents. ASA Grade Assessment: II - A patient with mild systemic disease. After reviewing the risks and benefits, the patient was deemed in satisfactory condition to undergo the procedure. The anesthesia plan was to use monitored anesthesia care (MAC). Immediately prior to administration of medications, the patient was re-assessed for adequacy to receive sedatives. The heart rate, respiratory rate, oxygen saturations, blood pressure, adequacy of pulmonary ventilation, and response to care were monitored throughout the procedure. The physical status of the patient was re-assessed after the procedure. After obtaining informed consent, the endoscope was passed under direct vision. Throughout the procedure, the patient's blood pressure, pulse, and oxygen saturations were monitored continuously. The colonoscope was introduced through the mouth, and advanced to the second part of duodenum. The upper GI endoscopy was accomplished without difficulty. The patient tolerated the procedure well. Scope In: 7:17:28 AM Scope Out: 7:20:41 AM Total Procedure Duration Time 0 hours 3 minutes 13 seconds Findings: Mucosal changes including ringed esophagus and small-caliber esophagus were found in the lower third of the esophagus. Biopsies were taken with a cold forceps for histology. Verification of patient identification for the specimen was done. Estimated blood loss was minimal. A guidewire was placed and the scope was withdrawn. Dilation was performed with a Savary dilator with no resistance at 42 Fr. The dilation site was examined and showed mild mucosal disruption. The entire examined stomach was normal. Patchy mildly erythematous mucosa without active bleeding and with no stigmata of bleeding was found in the duodenal bulb, in the first portion of the duodenum and in the second portion of the duodenum. Biopsies were taken with a cold forceps for histology. Verification of patient identification for the specimen was done. Estimated blood loss was minimal. Impression: - Esophageal mucosal changes secondary to eosinophilic esophagitis. Biopsied. Dilated. - Normal stomach. - Erythematous duodenopathy. Biopsied. Recommendation: - Discharge patient to home. - Resume previous diet. - Continue present medications. - Await pathology results. Procedure Code(s): --- Professional --- 26126, Esophagogastroduodenoscopy, flexible, transoral; with insertion of guide wire followed by passage of dilator(s) through esophagus over guide wire 43156, 59,51, Esophagogastroduodenoscopy, flexible, transoral; with biopsy, single or multiple CPT copyright 2021 [employer]. All rights reserved. The codes documented in this report are preliminary and upon cpc coder review may be revised to meet current compliance requirements. Raman Mcfarland DO 12/15/2022 7:49:26 AM This report has been signed electronically. Number of Addenda: 0 Note Initiated On: 12/15/2022 7:08 AM
--- NOTE | 2022-12-15 07:52 | OP.COLON_ITS ---
Patient Name: Shana Hirsch Procedure Date: 12/15/2022 7:21 AM Date of : 1960 Age: 62 Procedure: Colonoscopy Indications: Screening for colorectal malignant neoplasm Providers: Raman Mcfarland DO Referring MD: Holly Braun Medicines: Monitored Anesthesia Care Patient Profile: This is a 62 year old female. Refer to note in patient chart for documentation of history and physical. Patient has symptoms of chronic dysphagia and chronic heartburn. Last Colonoscopy: more than 10 years ago. Complications: No immediate complications. Procedure: Pre-Anesthesia Assessment: - Prior to the procedure, a History and Physical was performed, and patient medications and allergies were reviewed. The risks and benefits of the procedure and the sedation options and risks were discussed with the patient. All questions were answered and informed consent was obtained. Patient identification and proposed procedure were verified by the physician in the pre-procedure area. Mental Status Examination: alert and oriented. Airway Examination: normal oropharyngeal airway and neck mobility. Respiratory Examination: clear to auscultation. CV Examination: normal. Prophylactic Antibiotics: The patient does not require prophylactic antibiotics. Prior Anticoagulants: The patient has taken no anticoagulant or antiplatelet agents. ASA Grade Assessment: II - A patient with mild systemic disease. After reviewing the risks and benefits, the patient was deemed in satisfactory condition to undergo the procedure. The anesthesia plan was to use monitored anesthesia care (MAC). Immediately prior to administration of medications, the patient was re-assessed for adequacy to receive sedatives. The heart rate, respiratory rate, oxygen saturations, blood pressure, adequacy of pulmonary ventilation, and response to care were monitored throughout the procedure. The physical status of the patient was re-assessed after the procedure. After I obtained informed consent, the scope was passed under direct vision. Throughout the procedure, the patient's blood pressure, pulse, and oxygen saturations were monitored continuously. The colonoscope was introduced through the anus and advanced to the cecum, identified by appendiceal orifice and ileocecal valve. The colonoscopy was performed without difficulty. The patient tolerated the procedure well. The quality of the bowel preparation was adequate. The ileocecal valve, appendiceal orifice, and rectum were photographed. Scope In: 7:22:39 AM Scope Withdrawal Time 0 hours 10 minutes 34 seconds Scope Out: 7:42:53 AM Total Procedure Duration Time 0 hours 20 minutes 14 seconds Findings: The perianal and digital rectal examinations were normal. A 3 mm polyp was found in the cecum. The polyp was sessile. The polyp was removed with a jumbo cold forceps. Resection and retrieval were complete. Verification of patient identification for the specimen was done. Estimated blood loss was minimal. The exam was otherwise without abnormality on direct and retroflexion views. Two small-mouthed diverticula were found in the sigmoid colon. Impression: - One 3 mm polyp in the cecum, removed with a jumbo cold forceps. Resected and retrieved. - The examination was otherwise normal on direct and retroflexion views. - Diverticulosis in the sigmoid colon. Recommendation: - Discharge patient to home. - Resume previous diet. - Continue present medications. - Await pathology results. - Repeat colonoscopy in 5 years for surveillance. Procedure Code(s): --- Professional --- 54010, Colonoscopy, flexible; with biopsy, single or multiple CPT copyright 2021 [employer]. All rights reserved. The codes documented in this report are preliminary and upon clinical coder review may be revised to meet current compliance requirements. Raman Mcfarland DO 12/15/2022 7:52:07 AM This report has been signed electronically. Number of Addenda: 0 Note Initiated On: 12/15/2022 7:21 AM
--- NOTE | 2022-12-15 07:52 | OP.CCLET_ITS ---
12/15/2022 Holly Braun Re : Colonoscopy procedure for Shana Braun This procedure was performed on Thursday, December 15, 2022. My impressions and recommendations are as follows: Impressions : - One 3 mm polyp in the cecum, removed with a jumbo cold forceps. Resected and retrieved. - The examination was otherwise normal on direct and retroflexion views. - Diverticulosis in the sigmoid colon. Recommendations : - Discharge patient to home. - Resume previous diet. - Continue present medications. - Await pathology results. - Repeat colonoscopy in 5 years for surveillance. My findings are described in the full procedure note, which is enclosed. If I can be of further assistance, please feel free to contact me at . Sincerely, Raman Mcfarland, 12/15/2022 7:52:07 AM This report has been signed electronically.
== END 2022-12-15 08:51 | disposition home or self-care (01) ==
LOC: EN 05:59 → AC 06:01
PROVIDERS: PCP Internal Medicine; Referring Provider Internal Medicine; Visit Provider Internal Medicine Gastroenterology
PROC: 0DJD8ZZ Inspection of Lower Intestinal Tract, Via Natural or Artificial Opening Endoscopic (ICD-10-PCS; CPT 45378; principal; 2022-12-15 07:10)
DX: Z12.11 Encounter for screening for malignant neoplasm of colon (principal); K21.00 Gastro-esophageal reflux disease with esophagitis, without bleeding; K31.89 Other diseases of stomach and duodenum; K63.5 Polyp of colon; K57.30 Diverticulosis of large intestine without perforation or abscess without bleeding; K76.0 Fatty (change of) liver, not elsewhere classified; E03.9 Hypothyroidism, unspecified; Z79.899 Other long term (current) drug therapy
CPT/HCPCS: 45380; 43248; 43239; 88305; 88313; J7120; J2405

== ENCOUNTER 2023-02-13 07:35 | Day surgery (SDC) | payer OTHER, SELFPAY ==
[2023-02-13 07:57] VITALS: BP 123/78; PULSE 76; RESP 16; TEMP 36.4; O2SAT 99
[2023-02-13] MEDS: Lidocaine Jelly 2% 20 ML Syringe (URO-JET) 1 APPLIC (08:04)
== END 2023-02-13 08:30 | disposition home or self-care (01) ==
PROVIDERS: PCP Internal Medicine; Referring Provider Internal Medicine; Visit Provider Internal Medicine Gastroenterology
PROC: F00ZJWZ Instrumental Swallowing and Oral Function Assessment using Swallowing Equipment (ICD-10-PCS; CPT 43235; principal; 2023-02-13 07:55)
DX: K22.2 Esophageal obstruction (principal)
CPT/HCPCS: 91010

== ENCOUNTER → 2023-06-23 | Outpatient (CLI) | payer OTHER, SELFPAY ==
--- NOTE | 2023-06-23 08:00 | BI_ITS ---
MAMMOGRAPHY - BILATERAL SCREENING 3-D TOMOSYNTHESIS REASON FOR EXAM: Female, 62 years old. Encounter for screening mammogram for maligant neoplasm of breass PERTINENT HISTORY: No significant family history. TECHNIQUE: 2-D mammograms and 3-D Tomosynthesis of the breast (s) were performed. CAD was performed. COMPARISON: 04/08/2022 FINDINGS: The breast composition is heterogeneously dense that can obscure small breast masses. Scattered benign calcifications are seen. No dense spiculated masses or suspicious microcalcifications are identified. No architectural distortion is identified. There is no skin thickening or retraction. There has been no significant change since the prior study. BI/SCRN MAMM (CAD)W/JL BILAT IMPRESSION: No mammographic signs of malignancy. Routine yearly mammograms recommended. ASSESSMENT CATEGORY: BIRADS Category 1: Negative. A letter regarding these results will be sent to the patient by the facility within 30 days. FOLLOW UP RECOMMENDATION: Yearly follow up mammogram recommended. (A) Approximately 10% of breast cancers are not detected by mammography. A normal mammogram should not delay biopsy of a clinically suspicious abnormality. Electronically Signed: Sumanth Duncan MD at 17:47 EST ,
== END | disposition home or self-care (01) ==
PROVIDERS: PCP Internal Medicine; Referring Provider Internal Medicine; Visit Provider Internal Medicine
DX: Z12.31 Encounter for screening mammogram for malignant neoplasm of breast (principal)
CPT/HCPCS: 77063; 77067

== ENCOUNTER → 2023-11-20 | Outpatient (CLI) | payer OTHER, SELFPAY ==
--- NOTE | 2023-11-20 07:11 | US_ITS ---
STUDY: ABDOMINAL ULTRASOUND - RIGHT UPPER QUADRANT REASON FOR VISIT: Female, 62 years old hepatic fibrosis TECHNIQUE: Ultrasound evaluation of the right upper quadrant was performed with real-time and static martin-scale imaging. TECHNICAL QUALITY: Adequate. COMPARISON: None. FINDINGS: Liver: The liver measures 16.4 cm. There is normal echogenicity of the liver. The bile ducts are within normal limits. There is hepatic color flow. The direction of portal flow is hepatopetal. 2.2 cm round anechoic mass with increased through transmission within the right lobe of the liver consistent with a cyst. Gallbladder: Normal distended gallbladder. The gallbladder wall measures 2 mm. There is a negative sonographic Evangelista''s sign. There is no pericholecystic fluid. There are no gallstones. Common Bile Duct (C.B.D.): The common bile duct measures 5 mm. Pancreas: Normal size of the head, body and tail of the pancreas. There is normal echogenicity of the pancreas. There is no demonstrated pancreatic mass or cyst. Right Kidney: Normal size of the right kidney. The right kidney measures 10.0 cm. Normal renal cortex. The right cortex measures 1.2 cm. There is no demonstrated renal mass or cyst. There is no right hydronephrosis. US/Abdomen Limited IMPRESSION: Normal right upper quadrant ultrasound examination. 2 cm hepatic cyst. Electronically Signed: Sumanth Duncan MD at 12:30 EDT ,
== END | disposition home or self-care (01) ==
PROVIDERS: PCP Internal Medicine; Referring Provider Internal Medicine; Visit Provider Internal Medicine
DX: K76.0 Fatty (change of) liver, not elsewhere classified (principal)
CPT/HCPCS: 76705